=== PATIENT | female | born 1970 | race Caucasian/White ===

== ENCOUNTER 2020-11-25 15:04 | Outpatient (REF) | payer OTHER, SELFPAY | END 2020-11-25 15:05 | disposition home or self-care (01) | LOC: HO.LAB 15:04 | PROVIDERS: Visit Provider Internal Medicine | DX: Z20.822 Contact with and (suspected) exposure to COVID-19 (principal) | CPT/HCPCS: 36415; C9803; U0003; U0005 ==

== ENCOUNTER 2021-01-13 17:10 | Emergency (ER) | payer OTHER, SELFPAY ==
[2021-01-13 17:54] VITALS: BP 213/98; PULSE 88; RESP 14; TEMP 36.6; O2SAT 98; BMI 38.2
== END 2021-01-13 23:18 | disposition left against medical advice (07) ==
PROVIDERS: Emergency Provider Emergency Medicine
DX: M79.642 Pain in left hand (principal); I10 Essential (primary) hypertension
CPT/HCPCS: 99281; 99282

== ENCOUNTER 2021-09-30 11:39 | Outpatient (REF) | payer OTHER, SELFPAY ==
[2021-09-30 13:13] LABS: COVID-19 Test Negative (Negative)
== END 2021-09-30 11:40 | disposition home or self-care (01) ==
LOC: HO.LAB 11:39
PROVIDERS: Visit Provider Internal Medicine
DX: Z20.822 Contact with and (suspected) exposure to COVID-19 (principal)
CPT/HCPCS: 87635; C9803

== ENCOUNTER 2024-12-28 08:53 | Outpatient (REF) | payer OTHER, SELFPAY ==
[2024-12-28 14:17] LABS: MANUAL DIFF FLAG NO
[2024-12-28 14:34] LABS: Basophils Absolute Auto 0.1 X10*3/uL (0.0-0.2); Basophils Percent Auto 1.6 % (0-2); Eosinophils Absolute Auto 0.4 X10*3/uL (0.0-0.4); Eosinophils Percent Auto 5.6 % (0-4); Imm Gran Abs Auto 0.01 X10*3/uL (0.00-0.03); Imm Gran Pct Auto 0.1 % (0.0-0.4); Lymphocytes Absolute Auto 2.1 X10*3/uL (1.2-4.9); Lymphocytes Percent Auto 29.6 % (20-40); Mean Corpuscular HGB Conc 24.6 g/dl (31.0-35.0); Mean Corpuscular Hemoglobin 14.6 pg (27.0-33.0); Mean Platelet Volume 9.4 fL (9.4-12.3); Monocytes Absolute Auto 0.5 X10*3/uL (0.1-1.2); Monocytes Percent Auto 6.7 % (2-11); Neutrophils Absolute Auto 3.9 x10*3/uL (2.0-8.3); Neutrophils Percent Auto 56.4 % (45-73); Platelet Count 397 X10*3/uL (160-400); Red Blood Count 4.74 X10*6/uL (4.20-5.50); Red Cell Distribution Width 21.1 % (11.0-16.0)
[2024-12-28 14:38] LABS: Hemoglobin 6.9 g/dl (12.0-16.0); Mean Corpuscular Volume 59.1 fL (80.0-98.0)
[2024-12-28 15:05] LABS: Alanine Aminotransferase 15 U/L (0-31); Albumin Level 3.9 g/dL (3.5-5.0); Alkaline Phosphatase 95 U/L (39-117); Anion Gap 11 (12-20); Aspartate Amino Transferase 24 U/L (5-31); Bilirubin Total 0.5 mg/dL (0.0-1.0); Blood Urea Nitrogen 14 mg/dL (9-16); Calcium 9.2 mg/dL (8.4-10.2); Carbon Dioxide 27 mmol/L (22-29); Chloride 107 mmol/L (96-108); Cholesterol 160 mg/dL (<200); Estimated Glomerular Filt Rate > 60; Glucose Random 92 mg/dL (60-115); HDL Cholesterol 51 mg/dL (>40); LDL Cholesterol Calculated 91 mg/dL (<100); Potassium 3.9 mmol/L (3.3-5.1); Sodium 141 mmol/L (135-145); Total Protein 7.5 g/dL (6.5-8.0); Triglycerides 92 mg/dL (<150)
[2024-12-28 15:25] LABS: TSH reflex Free T4 1.14 uIU/mL (0.32-4.0)
[2024-12-31 08:34] LABS: ~HepC Num1 0.16 S/CO (0.00-0.79); ~Hepatitis C Antibody Nonreactive (Nonreactive)
== END 2024-12-28 08:54 | disposition home or self-care (01) ==
LOC: HO.CHCLDS 08:53
PROVIDERS: Visit Provider Internal Medicine
DX: I10 Essential (primary) hypertension (principal)
CPT/HCPCS: 36415; 80053; 80061; 84443; 85025; 86803

== ENCOUNTER 2025-01-29 12:37 | Outpatient (REF) | payer OTHER, MEDICAID, SELFPAY ==
--- OUTSIDE RECORDS SUMMARY | 2025-01-29 13:40 | XMS_ITS | Encounter Summary ---
Author Organization [employer] Address [address] [facility] [address] [place] [address] Care Team Providers Care Cooler Deliverer Name Role Phone Oren De Leon MD Primary Care Prov ider Encounter Details Date Type Department Care Team (Latest Contact Info) Description 01/29/2025 Travel Social History Tobacco Use Types Packs/Day Years Used Date Smoking Tobacco: Never Smokeless Tobacco: Never Alcohol Use Standard Drinks/Week Comments Never 0 (1 standard drink = 0.6 oz pur e alcohol) Depression Answer Date Recorded Patient Health Questionnaire-9 Score 0 12/27/2024 Patient Health Questionnaire-9 Score 0 12/27/2024 Last PHQ-9: Questionnaire Data Not on file 0 12/27/2024 Housing Stability Answer Date Recorded What is your housing situation today? Not on monica e 12/27/[address] you li ve. Do you have problems with any of the following? None of the above 12/27/2024 Food Insecurity Answer Date Recorded Within the past 12 months, y ou worried that your food would run out before you got money to buy more: Never True 12/27/2024 Within the past 12 months,th e food you bought just didn't last and you didn't have enough money to get more: Never True 06/2025 Transportation Answer Date Recorded In the past 12 months, has l ack of transportation kept you from medical appts, meetings, work or from getting things needed for daily living? No 12/27/2024 Utilities Answer Date Recorded In the past 12 months, has t he electric, gas, oil or water company threatened to shut off services in your home? No 12/27/2024 Depression Answer Date Recorded Patient Health Questionnaire-2 Score 0 12/27/2024 Internet Access Answer Date Recorded Internet Access Q1 Yes 12/27/2024 Internet Access Q2 Not on file 12/27/2024 Comments Unknown Sex and Gender Information Value Date Recorded Sex Assigned at Female 10/03/2024 9:45 AM EST Legal Sex Female 10:39 AM EST Gender Identity Female 10/03/2024 9:45 AM EST Sexual Orientation Straight 10/03/2024 9: 45 AM EST documented as of this encounter Plan of Treatment Not on file documented as of this encounter Visit Diagnoses Not on filedocumented in this encounter Additional Health Concerns Assessment Noted Time PHQ-9 Depression Total Score: 0 12/28/19 9:09 AM EDT documented as of this encounter Care Teams Cooler Deliverer Relationship Specialty Start Date End Date Oren De Leon MD [address] [place] [phone] PCP - General Internal Medicine 12/13/24 documented as of this encounter
--- OUTSIDE RECORDS SUMMARY | 2025-01-29 13:40 | XMS_ITS | Encounter Summary ---
Author Organization [employer] Address [address] [facility] [address] [place] [address] Care Team Providers Care Archery Equipment Hay Sorter Name Role Phone Oren De Leon MD Primary Care Prov ider Encounter Details Date Type Department Care Team (Late st Contact Info) Description 01/29/2025 11:30 AM EDT Telemedicine [facility] [address] [place], [place] [phone] Oren De Leon MD [address] [place] [address] Primary hypertension (Primary Dx); Anemia, unspecified type Social History Tobacco Use Types Packs/Day Years [...] AM EST documented as of this encounter Last Filed Vital Signs Vital Sign Reading Time Taken Comments Blood Pressure 141/69 01/29/2025 11:52 AM EDT Pulse - - Temperature - - Respiratory Rate - - Oxygen Saturation - - Inhaled Oxygen Concentration - - Weight - - Height - - Body Mass Index - - documented in this encounter Miscellaneous Notes * Assessment & Plan Note - Oren Law MD - 01/29/2025 12:02 PM EDTAssociated Problem(s): Anemia Labs not done, will follow up results, denied rectal or vaginal bleeding, pending colonoscopy * Assessment & Plan Note - Oren Law MD - 01/29/2025 12:01 PM EDTAssociated Problem(s): Primary hypertension Not at target, will add nifedipine, keep low sodium diet and exercise as tolerated documented in this encounter Plan of Treatment Not on file documented as of this encounter Visit Diagnoses Diagnosis Primary hypertension- Primary Unspecified essential hypertension Anemia, unspecified type documented in this encounter Additional Health Concerns Assessment Noted Time PHQ-9 Depression Total Score: 0 12/28/19 25 9:09 AM EDT documented as of this encounter Care Teams Archery Equipment Hay Sorter Relationship Specialty Start Date End Date Oren De Leon MD [address] [place] [phone] PCP - General Internal Medicine 12/13/24 documented as of this encounter
--- OUTSIDE RECORDS SUMMARY | 2025-01-29 13:40 | XMS_ITS | Clinical Summary ---
Author Organization [employer] Address [address] [facility] [address] [place] [address] Care Team Providers Care Kennel Technician Name Role Phone Oren De Leon MD Primary Care Prov ider Allergies No known active allergies Medications Blood Pressure kit 1 kit Once per day. 1 kit 5 Active losartan-hydro CHLOROthiazide (Hyzaar) 100-25 MG tablet Take 1 tablet by mouth Once per day. 90 tablet 3 5 01/16/20 26 Active traZODone (Desyrel) 50 MG tablet Take 1 tablet (50 mg) by mouth at bedtime. 30 tablet 5 02/15/20 25 Active NIFEdipine XL (Procardia XL) 30 MG 24 hr tablet Take 1 tablet (30 mg) by mouth Once per day. Do not crush, chew, or split. 30 tablet 5 01/30/20 26 Active ferrous gluconate (Fergon) 324 (38 Fe) MG tablet Take 1 tablet (324 mg) by mouth with breakfast. 90 tablet 3 5 01/30/20 26 Active losartan (Cozaar) 50 MG tablet Take 1 tablet (50 mg) by mouth Once per day. 30 tablet 5 01/16/20 25 Discontinued losartan (Cozaar) 50 MG tablet Take 2 tablets (100 mg) by mouth Once per day. 180 tablet 5 01/16/20 25 Discontinued losartan (Cozaar) 100 MG tablet Take 1 tablet (100 mg) by mouth Once per day. 90 tablet 5 01/16/20 25 Discontinued Active Problems Problem Noted Date Diagnosed Date Anemia 01/15/2025 Assessment & Plan (01/29/2025 12:02 PM EDT): Labs not done, will follow up results, denied rectal or vaginal bleeding, pending colonoscopy Assessment & Plan (01/15/2025 9:55 AM EDT): Patient seen at er were 1 prbc was transfussed, mcv extremly low, will check for thalasemia and iron def, follow up in 2 weeks Primary insomnia 01/15/2025 Assessment & Plan (01/15/2025 9:56 AM EDT): Will start on trazodone risk vs benefits discussed Encounter for screening mamm ogram for malignant neoplasm of breast 12/27/2024 Assessment & Plan (12/27/2024 11:31 AM EDT): Will order breast mammogram Screening for colon cancer 12/27/2024 Assessment & Plan (12/27/2024 11:32 AM EDT): Will refer to gastroenterology for screening colon cancer Encounter for medical examination to establish c are 12/13/2024 Assessment & Plan (12/13/2024 9:58 AM EDT): Last pcp visit 5 years ago ER visit last year:- Hospitalization:- Pmhx: hypertension Pshx: tubal ligation 2000 All: - Meds: losartan 50mg prn A1 Menarche 12yrs LMP 11/08/24 Primary hypertension 12/13/2024 Assessment & Plan (01/29/2025 12:01 PM EDT): Not at target, will add nifedipine, keep low sodium diet and exercise as tolerated Assessment & Plan (01/15/2025 9:54 AM EDT): Not at target, she remains asymptomatic, will add hyzar 100/25, continue low sodium diet and exercise as tolerated, keep bp log, follow up in 2 weeks Assessment & Plan (12/27/2024 11:51 AM EDT): Uncontrolled, will start losartan 50mg, follow up in 2 weeks, keep low sodium diet and exercise as tolerated, keep bp log Assessment & Plan (12/13/2024 10:19 AM EDT): Patient refers that for the past 5 years she has been on-off taking losartan, not monitoring her blood pressure, will order a bp kit and follow up in 2 weeks to determine is she needs therapy Encounters Date Type Department Care Team Description 01/29/2025 11:30 AM EDT Telemedicine [facility] [address] [place] [address] Oren De Leon MD Primary hypertension (Primary Dx); Anemia, unspecified type 01/29/2025 Travel 01/15/2025 9:30 AM EDT Telemedicine [facility] [address] [place] [address] Oren De Leon MD Anemia, unspecified type (Primary Dx); Primary hypertension; Primary insomnia 01/15/2025 Travel 12/28/2024 Orders Only [facility] [address] [place] [address] Oren De Leon MD 12/28/2024 Telephone [facility] [address] [place] [address] Oren De Leon MD 12/28/2024 Telephone [facility] [address] [place] [address] Oren De Leon MD Results 12/27/2024 11:15 AM EDT Telemedicine [facility] [address] [place] [address] Oren De Leon MD Encounter for screening mammogram for malignant neoplasm of breast (Primary Dx); Screening for colon cancer; Screening for cervical cancer; Primary hypertension 12/27/2024 Travel 12/26/2024 Telephone [facility] [address] [place] [address] Oren De Leon MD chart prep 12/13/2024 9:45 AM EDT Telemedicine [facility] [address] [place] [address] Oren De Leon MD Encounter for medical examination to establish care (Primary Dx); Primary hypertension 12/13/2024 Travel 12/12/2024 Telephone [facility] [address] [place] [address] Oren De Leon MD chart prep 12/10/2024 Telephone [facility] [address] [place] [address] Oren De Leon MD No Show 12/10/2024 Telephone [facility] [address] [place], [place] [phone] Oren De Leon MD from Last 3 Months Family History Medical History Relation Name Comments Lung cancer Brother chronic smoker No Known Problems Father Diabetes Mother Hypertension Mother Lung cancer Mother chronic smoker Hypertension Sister Thyroid cancer Sister Relation Name Status Comments Brother Father Mother Sister Social History Tobacco Use Types Packs/Day Years Used Date Smoking Tobacco: Never Smokeless Tobacco: Never Tobacco Cessation:Counseling Given: Not Answered Alcohol Use Standard Drinks/Week Comments Never 0 [...] Orientation Straight 10/03/2024 9: 45 AM EST Last Filed Vital Signs Vital Sign Reading Time Taken Comments Blood Pressure 141/69 01/29/2025 11:52 AM EDT Pulse - - Temperature - - Respiratory Rate - - Oxygen Saturation - - Inhaled Oxygen Concentration - - Weight - - Height - - Body Mass Index - - Plan of Treatment Health Maintenance Due Date Last Done Comments CT Colonography 1971 Colonoscopy 1971 Colorectal Cancer Screening 1971 FIT DNA/Cologuard 1971 FIT 1971 FOBT 1971 HIV Screening 1971 SDOH Screening 1971 Sigmoidoscopy 1971 DTaP/Tdap/Td Vaccines (1 - Tdap) 1990 Hepatitis B Vaccines (1 of 3 - 19+ 3-dose series) 1990 Pap Smear 1992 Cervical Cancer Screening 2001 HPV/Cotest 2001 Mammogram 2011 Pneumococcal Vaccine: 50+ Years (1 of 1 - PCV) 2021 Zoster Vaccines (1 of 2) 2021 COVID-19 Vaccine ( - 2023-2 5 season) 2024 Influenza Vaccine (#1) 2024 Tobacco Screening 12/13/2025 12/13/2024 Alcohol/Substance Use Screening 12/27/2025 12/27/2024 Depression Screening 12/27/2025 12/27/2024, 12/27/2024 Lipid Panel 12/28/2029 12/28/2024 RSV Patients and Patients Aged 60 years or older (1 - 1-dose 75+ series) 2046 Hepatitis C Screening Completed 12/28/2024 HIB Vaccines Aged Out No longer eligi ble based on patient's age to complete this topic HPV Vaccines Aged Out No longer eligi ble based on patient's age to complete this topic Hepatitis A Vaccines Aged Out No long er eligible based on patient's age to complete this topic IPV Vaccines Aged Out No longer eligi ble based on patient's age to complete this topic Meningococcal Vaccine Aged Out No gordy mercedes eligible based on patient's age to complete this topic RSV under 20 months Aged Out No longe r eligible based on patient's age to complete this topic Rotavirus Vaccines Aged Out No longer eligible based on patient's age to complete this topic Procedures Procedure Name Priority Date/Time Associated Diagnosis Comments PATHOLOGIST REVIEW - CBC Routine 12/28/2024 8:55 AM EDT HEPATITIS C AB W/REFL TO HCV RNA, QN, PCR Routine 12/28/2024 8:55 AM EDT Primary hypertension TSH W/REFLEX TO FT4 Routine 12/28/2024 8 :55 AM EDT Primary hypertension LIPID PANEL, STANDARD Routine 12/28/2024 8:55 AM EDT Primary hypertension COMPREHENSIVE METABOLIC PANEL Routine 12/28/2024 8:55 AM EDT Primary hypertension CBC WITH AUTO DIFFERENTIAL Routine 12/28/2024 8:55 AM EDT Primary hypertension from Last 3 Months Results * Pathologist Review - CBC (12/28/2024 8:55 AM EDT) Pathologist Review - CBC SEE NOTE [facility] Comment:Anemia with microcyt ic RBC?s and target cells: considerthalassemia, hemoglobinopathy, liver disease. Cannot excludea superimposed iron deficiency/blood loss. Clinicalcorrelation is necessary.Anastasia Casiano MD 12/28/2024 8:55 AM EDT 12/28/2024 2:14 PM EDT us Oren Law MD LAB BLOOD ORDERABL ES Final Result [facility] [address] [place] [phone] * TSH W/Reflex to FT4 (12/28/2024 8:55 AM EDT) TSH reflex Free T4 1.14 0.32 - 4.0 uIU/mL [facility] Blood Venous blood specimen / Unknown 12/28/2024 8:55 AM EDT 12/28/2024 2:14 PM EDT us Oren Law MD LAB BLOOD ORDERABL ES Final Result [facility] [address] [place] [phone] * (ABNORMAL) CBC auto differential (12/28/2024 8:55 AM EDT) Pathologist [facility] White Blood Count 7.0 4.8 - 10.8 X10*3/uL [facility] Red Blood Count 4.74 4.20 - 5.50 X10*6/uL [facility] Hemoglobin 6.9(LL) 12.0 - 16.0 g/dl [facility] Comment:Critical HGB called to and read back by WING Lindquiston 12/28/24 at 1438 by DASHAWN. Hematocrit 28.0(L) 37.0 - 47.0 % [facility] Mean Corpuscular Volume 59.1(L) 80.0 - 98.0 fL [facility] Mean Corpuscular Hemoglobin 14.6(L) 27.0 - 33.0 pg [facility] Mean Corpuscular HGB Conc 24.6(L) 31.0 - 35.0 g/dl [facility] Red Cell Distribution Width 21.1(H) 11.0 - 16.0 % [facility] Platelet Count 397 160 - 400 X10*3/uL [facility] Mean Platelet Volume 9.4 9.4 - 12.3 fL [facility] Neutrophils Percent Auto 56.4 45 - 73 % [facility] Imm Gran Pct Auto 0.1 0.0 - 0.4 % [facility] Lymphocytes Percent Auto 29.6 20 - 40 % [facility] Monocytes Percent Auto 6.7 2 - 11 % [facility] Eosinophils Percent Auto 5.6(H) 0 - 4 % [facility] Basophils Percent Auto 1.6 0 - 2 % [facility] NRBC Pct Auto 0.0 0.0 - 0.2 /100WBC [facility] Neutrophils Absolute Auto 3.9 2.0 - 8.3 x10*3/uL [facility] Imm Gran Abs Auto 0.01 0.00 - 0.03 X10*3/uL [facility] Lymphocytes Absolute Auto 2.1 1.2 - 4.9 X10*3/uL [facility] Monocytes Absolute Auto 0.5 0.1 - 1.2 X10*3/uL [facility] Eosinophils Absolute Auto 0.4 0.0 - 0.4 X10*3/uL [facility] Basophils Absolute Auto 0.1 0.0 - 0.2 X10*3/uL [facility] NRBC Abs Auto 0.000 0.0 - 0.012 X10*3/uL [facility] Blood Venous blood specimen / Unknown 12/28/2024 8:55 AM EDT 12/28/2024 2:14 PM EDT us Oren Law MD LAB BLOOD ORDERABL ES Final Result [facility] [address] [place] [phone] * Hepatitis C Antibody with Reflex to HCV, RNA, Quantitative, Real-Time PCR (12/28/2024 8:55 AM EDT) Hepatitis C Antibody Nonreactive Nonreactive [facility] Comment:Antibodies to HCV no t detected; does not exclude early acuteHCV infection. Blood Venous blood specimen / Unknown 12/28/2024 8:55 AM EDT 12/28/2024 2:14 PM EDT us Oren Law MD LAB BLOOD ORDERABL ES Final Result Performing Organization Address [facility] Co de Phone Number [facility] [address] [place] [phone] * Lipid Panel, Standard (12/28/2024 8:55 AM EDT) Triglycerides 92 <150 mg/dL [facility] Comment:Desirable Triglyceri de: less than 150 mg/dLBorderline High Triglyceride 150-199 mg/dLHigh Triglyceride: 200-499 mg/dLVery High Triglyceride: greater than or equal to 5OO mg/dL Cholesterol 160 <200 mg/dL [facility] Comment:Desirable Cholestero l: less than 200 mg/dLBorderline High Cholesterol: 200-239 mg/dLHigh Cholesterol: greater than 239 mg/dL LDL Cholesterol Calculated 91 <100 mg/dL [facility] Comment:Desirable LDL: less than 100 mg/dLNear Optimal/Above Optimal LDL: 110- 129 mg/dLBorderline High LDL: 130-159 mg/dLHigh LDL: 160-189 mg/dLVery High LDL: greater than or equal to 190 mg/dL HDL Cholesterol 51 >40 mg/dL [facility] Comment:Desirable HDL: great er than 40 mg/dL Note: This HDL assay may give artificially low results in patients with liver disease. Blood Venous blood specimen / Unknown 12/28/2024 8:55 AM EDT 12/28/2024 2:14 PM EDT us Oren Law MD LAB BLOOD ORDERABL ES Final Result Performing Organization Address City/[facility]/ZIP Co de Phone Number [facility] [address] [place] [phone] * (ABNORMAL) Comprehensive Metabolic Panel (12/28/2024 8:55 AM EDT) Sodium 141 135 - 145 mmol/L [facility] Potassium 3.9 3.3 - 5.1 mmol/L [facility] Chloride 107 96 - 108 mmol/L [facility] Carbon Dioxide 27 22 - 29 mmol/L [facility] Anion Gap 11(L) 12 - 20 [facility] Urea Nitrogen (BUN) 14 9 - 16 mg/dL [facility] Creatinine, Serum 0.57 0.5 - 1.4 mg/dL [facility] Estimated Glomerular Filt Rate >60 [facility] Comment:Chronic Kidney Disea se: Estimated GFR < 60 mL/min/[id number] Kidney Disease: Estimated GFR < 15 mL/min/1.73m2 Glucose 92 60 - 115 mg/dL [facility] Calcium 9.2 8.4 - 10.2 mg/dL [facility] Bilirubin, Total 0.5 0.0 - 1.0 mg/dL [facility] Aspartate Amino Transferase 24 5 - 31 U/L [facility] Alanine Aminotransferase 15 0 - 31 U/L [facility] Total Protein 7.5 6.5 - 8.0 g/dL [facility] Albumin Level 3.9 3.5 - 5.0 g/dL [facility] Alkaline Phosphatase 95 39 - 117 U/L [facility] Blood Venous blood specimen / Unknown 12/28/2024 8:55 AM EDT 12/28/2024 2:14 PM EDT us Oren Law MD LAB BLOOD ORDERABL ES Final Result [facility] [address] [place] [phone] [phone] from Last 3 Months Insurance MEDICARE [facility] STANDARD Care Teams Kennel Technician Relationship Specialty Start Date End Date Oren De Leon MD [address] [place] [phone] PCP - General Internal Medicine 12/13/24
[2025-01-29 14:49] LABS: Iron 20 mcg/dL (30-160); Percent Iron Saturation 5 % (15-50); Total Iron Binding Capacity 442 mcg/dL (228-428); Unsaturated Iron Binding 422 ug/dL
[2025-01-29 15:18] LABS: Folate 13.3 ng/mL (> or = 4.0); Vitamin B12 1112 pg/mL (200-900)
[2025-01-30 13:39] LABS: Hematocrit 32.3 % (35.0-45.0); Hemoglobin 8.6 g/dL (11.7-15.5); MCH 16.7 pg (27.0-33.0); MCV 62.7 fL (80.0-100.0); RBC 5.15 Million/uL (3.80-5.10); RDW 23.8 % (11.0-15.0)
== END 2025-01-29 12:38 | disposition home or self-care (01) ==
LOC: HO.CHCLDS 12:37
PROVIDERS: Visit Provider Internal Medicine
DX: D64.9 Anemia, unspecified (principal)
CPT/HCPCS: 36415; 82607; 82746; 83020; 83540; 85014; 85018; 85041

== ENCOUNTER 2025-05-09 08:25 | Outpatient (REF) | payer MEDICARE, MEDICAID, SELFPAY ==
[2025-05-09 14:31] LABS: MANUAL DIFF FLAG NO
[2025-05-09 14:39] LABS: Hematocrit 40.0 % (37.0-47.0); Hemoglobin 12.0 g/dl (12.0-16.0); Imm Gran Abs Auto 0.02 X10*3/uL (0.00-0.03); Imm Gran Pct Auto 0.2 % (0.0-0.4); Lymphocytes Absolute Auto 2.6 X10*3/uL (1.2-4.9); Mean Corpuscular HGB Conc 30.0 g/dl (31.0-35.0); Mean Corpuscular Hemoglobin 25.4 pg (27.0-33.0); Mean Corpuscular Volume 84.6 fL (80.0-98.0); NRBC Abs Auto 0.000 X10*3/uL (0.0-0.012); NRBC Pct Auto 0.0 /100WBC (0.0-0.2); Platelet Count 306 X10*3/uL (160-400); Red Blood Count 4.73 X10*6/uL (4.20-5.50); White Blood Count 8.7 X10*3/uL (4.8-10.8)
[2025-05-09 14:45] LABS: Iron 26 mcg/dL (30-160); Percent Iron Saturation 8 % (15-50); Total Iron Binding Capacity 343 mcg/dL (228-428); Unsaturated Iron Binding 317 ug/dL
== END 2025-05-09 08:26 | disposition home or self-care (01) ==
LOC: HO.CHCLDS 08:25
PROVIDERS: Visit Provider Internal Medicine
DX: D50.8 Other iron deficiency anemias (principal)
CPT/HCPCS: 36415; 83540; 85025

== ENCOUNTER 2025-06-04 13:48 | Outpatient (AMB) | payer MEDICARE, MEDICAID, SELFPAY ==
[2025-06-04 13:52] VITALS: BP 138/78; PULSE 90; O2SAT 94; BMI 38.0
--- NOTE | 2025-06-04 13:52 | HO.NEPHOV ---
Vital Signs 06/04/25 13:52 Height 5 ft 2 in Weight 208 lb BMI 38.0 BP 138/78 Blood Pressure Location Lt brachial Position Sitting Pulse 90 Pulse Source Pulse Oximeter Pulse Oximetry (%) 94 Oxygen Delivery Method Room Air Intake Visit Reasons: ENP: Primary Htn-Conf Transportation Assistant Required: Yes Transportation Assistant Name: Zoltan Dunn Allergies No Known Allergies Allergy (Verified 06/04/25 13:54) Medication List - Last Reconciled 06/04/25 by Cosmo Gómez MD ferrous gluconate 324 mg PO QAM losartan-hydrochlorothiazide 100-25 mg 1 tab PO DAILY nifedipine ER 30 mg PO DAILY PFSH Medical History (Updated 06/04/25 @ 14:13 by Cosmo Gómez MD) HTN (hypertension) Surgical History H/O tubal ligation Family History Mother Diabetes Hypertension Lung cancer Sister Hypertension Thyroid cancer Brother Lung cancer Physical Exam Vital Signs: Last Vital Signs Pulse 90 06/04/25 13:52 BP 138/78 06/04/25 13:52 Pulse Ox 94 06/04/25 13:52 Oxygen Delivery Method Room Air 06/04/25 13:52 BMI result Body Mass Index 38.0 Results Reviewed Nephrology Results: Hgb, (12.0-16.0) 12.0 g/dl Δ 05/09/25 WBC, (4.8-10.8) 8.7 X10*3/uL 05/09/25 Plt Count, (160-400) 306 X10*3/uL 05/09/25 Sodium, (135-145) 141 mmol/L 12/28/24 Potassium, (3.3-5.1) 3.9 mmol/L 12/28/24 Chloride, (96-108) 107 mmol/L 12/28/24 Carbon Dioxide, (22-29) 27 mmol/L 12/28/24 BUN, (9-16) 14 mg/dL 12/28/24 Creatinine, (0.5-1.4) 0.57 mg/dL 12/28/24 Calcium, (8.4-10.2) 9.2 mg/dL 12/28/24 Assessment & Plan Assessment & Plan (1) HTN (hypertension): Code(s): I10 - Essential (primary) hypertension Category: Medical Plan 06/04/25 History of Present Illness The patient is a 54-year-old female presenting with hypertension management Hypertension has been long-standing, managed with losartan 100 mg /HCTZ and nifedipine, with no medication issues reported. Anemia was significant in December, improved with iron supplementation from hemoglobin 6.9 g/dL to 12.0 g/dL. No bleeding issues reported except during menstruation. Stress from family responsibilities affects blood pressure; recent weight loss noted, denies high salt intake. Medical History: - Hypertension - Anemia Social History: - Lives with a sick daughter and five grandchildren, contributing to stress and occasional blood pressure fluctuations. - Reports recent weight loss and denies high salt intake. Diagnostic Results: - Labs: Hemoglobin improved from 6.9 g/dL to 12.0 g/dL with iron supplementation. Physical Exam General: Awake. Comfortable. HENT: Neck supple. Mucosa moist. Pulmonary: Lungs aeration equal. No rales. Cardiology: Heart S1-S2 heard. No gallop. Abdomen: Soft. Non tender. Bowel sounds normal. Neurologic: No involuntary movements. No myoclonus. Extremities: No edema. No rash. No swelling in the legs. 1. Essential Hypertension - Continue losartan 100 mg with HCTZ and nifedipine 30 mg. - Regular blood pressure monitoring. Low salt diet Increase Physical activity Needs weight loss May need a 24 hr ABPM if SBP stays above 140 mmHg in office - Reassess in two months. 2. Anemia - Maintain iron supplementation. - Check hemoglobin levels. 3. Renal function is normal at baseline Orders: Orders Basic Metabolic Panel Today I10 - Essential (primary) hypertension Total Protein Urine Random Today I10 - Essential (primary) hypertension Complete Blood Count no Diff Today I10 - Essential (primary) hypertension Creatinine Urine Today I10 - Essential (primary) hypertension UA and rflx microscopic Today I10 - Essential (primary) hypertension Coding Level of Care Code New Pt Level 4 (56892) Diagnoses HTN (hypertension) I10
--- OUTSIDE RECORDS SUMMARY | 2025-06-04 17:40 | XMS_ITS | Clinical Summary ---
Author Organization [employer] Address [address] [facility] 7[address] [place] [address] Care Team Providers Care Local Telephone Operator Name Role Phone Oren De Leon MD Primary Care Prov ider Allergies No known active allergies Medications Blood Pressure kit 1 kit Once per day. 1 kit 12/13/2024 Active losartan-hydroCH LOROthiazide (Hyzaar) 100-25 MG tablet Take 1 tablet by mouth Once per day. 90 tablet 3 01/15/2025 Active traZODone (Desyrel) 50 MG tablet Take 1 tablet (50 mg) by mouth at bedtime. 30 tablet 01/15/2025 Active NIFEdipine XL (Procardia XL) 30 MG 24 hr tablet Take 1 tablet (30 mg) by mouth Once per day. Do not crush, chew, or split. 30 tablet 11 01/29/2025 Active ferrous gluconate (Fergon) 324 (38 Fe) MG tablet Take 1 tablet (324 mg) by mouth with breakfast. 90 tablet 3 01/29/2025 6 Active Active Problems Problem Noted Date Diagnosed Date Anemia 01/15/2025 Assessment & Plan (05/06/2025 1:45 PM EDT): On ferrous sulfate, new labs ordered will follow up results, denied rectal/vaginal bleeding Assessment & Plan (03/05/2025 9:51 AM EDT): Iron def anemia, no rectal or vaginal bleeding, scheduled for GI follow up, continue oral iron replacement, follow up in 2 months with new labs Assessment & Plan (02/01/2025 2:23 PM EDT): Labs not done, will follow up results, denied rectal or vaginal bleeding, pending colonoscopy, restart ferrous sulfate Assessment & Plan (01/15/2025 9:55 AM EDT): [...] 11/08/24 Primary hypertension 12/13/2024 Assessment & Plan (05/06/2025 1:44 PM EDT): Uncontrolled, patient refers having more anxiety lately that has been causing her blood pressure to be increased, she is asymptomatic, will refer to nephrology for evaluation Assessment & Plan (03/05/2025 9:50 AM EDT): Controlled, told to continue current therapy, encouraged low sodium diet and exercise as tolerated, keep bp log, will follow up in 2 months Assessment & Plan (01/29/2025 12:01 PM EDT): [...] Encounters Date Type Department Care Team Description 05/06/2025 1:15 PM EDT Telemedicine [facility] [address] [place] [address] Oren De Leon MD Primary hypertension (Primary Dx); Iron deficiency anemia secondary to inadequate dietary iron intake 05/03/2025 Telephone [facility] [address] [place] [address] Oren De Leon MD chart prep 04/29/2025 Travel 03/05/2025 9:00 AM EDT Telemedicine [facility] MED [facility] P[facility] [address] [place] [address] Oren De Leon MD Iron deficiency anemia secondary to inadequate dietary iron intake (Primary Dx); Primary hypertension 03/05/2025 Travel from Last 3 Months Family History Medical [...] Recorded What is your housing situation today? I have emil harper 05/06/[address] you li ve. Do you have problems with any of the following? None of the above 05/06/2025 Food Insecurity Answer Date Recorded Within the [...] Sign Reading Time Taken Comments Blood Pressure 150/70 05/06/2025 1:37 PM EDT Pulse - - Temperature - - Respiratory Rate - - Oxygen Saturation - - Inhaled Oxygen Concentration - - Weight - - Height - - Body Mass Index - - Plan of Treatment Health Maintenance Due Date Last Done Comments CT Colonography 1971 Colonoscopy 1971 Colorectal Cancer Screening 1971 Dental Oral Exam 1971 Dental Prophylaxis 1971 Dental X-Ray: Bitewings 1971 Dental X-Ray: Full Mouth 1971 FIT DNA/Cologuard 1971 FIT 1971 FOBT 1971 HIV Screening 1971 Sigmoidoscopy 1971 Disability Screening 1971 DTaP/Tdap/Td Vaccines (1 - Tdap) 1990 Hepatitis B Vaccines (1 of 3 - 19+ 3-dose series) 1990 Pap Smear 1992 Cervical Cancer Screening 2001 HPV/Cotest 2001 Mammogram 2011 Pneumococcal Vaccine: 50+ Years (1 of 1 - PCV) 2021 Zoster Vaccines (1 of 2) 2021 COVID-19 Vaccine (1 - 2023-2 5 season) 2025 Influenza Vaccine (#1) 2025 Tobacco Screening 12/13/2025 12/13/2024 Alcohol/Substance Use Screening 12/27/2025 12/27/2024 Depression Screening 12/27/2025 12/27/2024, 12/27/2024 SDOH Screening 05/06/2026 05/06/2025 Lipid Panel 12/28/2029 12/28/2024 RSV Patients and [...] patient's age to complete this topic Meningococcal B Vaccine Aged Out No l onger eligible based on patient's age to complete [...] Procedure Name Priority Date/Time Associated Diagnosis Comments IRON AND TOTAL IRON BINDING CAPACITY Routine 05/09/2025 8:27 AM EDT Iron deficiency anemia secondary to inadequate dietary iron intake CBC WITH AUTO DIFFERENTIAL Routine 05/09/2025 8:27 AM EDT Iron deficiency anemia secondary to inadequate dietary iron intake HEPATITIS C AB W/REFL TO HCV RNA, QN, PCR Routine 12/28/2024 8:55 AM EDT Primary hypertension LIPID PANEL, STANDARD Routine 12/28/2024 8:55 AM EDT Primary hypertension from Last 3 Months or Most Recently Relevant to Health Maintenance Results * (ABNORMAL) CBC auto differential (05/09/2025 8:27 AM EDT) White Blood Count 8.7 4.8 - 10.8 X10*3/uL [facility] Red Blood Count 4.73 4.20 - 5.50 X10*6/uL [facility] Hemoglobin 12.0 12.0 - 16.0 g/dl [facility] Hematocrit 40.0 37.0 - 47.0 % [facility] Mean Corpuscular Volume 84.6 80.0 - 98.0 fL [facility] Mean Corpuscular Hemoglobin 25.4(L) 27.0 - 33.0 pg [facility] Mean Corpuscular HGB Conc 30.0(L) 31.0 - 35.0 g/dl [facility] Red Cell Distribution Width 14.6 11.0 - 16.0 % [facility] Platelet Count 306 160 - 400 X10*3/uL [facility] Mean Platelet Volume 11.3 9.4 - 12.3 fL [facility] Neutrophils Percent Auto 56.8 45 - 73 % [facility] Imm Gran Pct Auto 0.2 0.0 - 0.4 % [facility] Lymphocytes Percent Auto 30.0 20 - 40 % [facility] Monocytes Percent Auto 6.6 2 - 11 % [facility] Eosinophils Percent Auto 5.1(H) 0 - 4 % [facility] Basophils Percent Auto 1.3 0 - 2 % [facility] NRBC Pct Auto 0.0 0.0 - 0.2 /100WBC [facility] Neutrophils Absolute Auto 4.9 2.0 - 8.3 x10*3/uL [facility] Imm Gran Abs Auto 0.02 0.00 - 0.03 X10*3/uL [facility] Lymphocytes Absolute Auto 2.6 1.2 - 4.9 X10*3/uL [facility] Monocytes Absolute Auto 0.6 0.1 - 1.2 X10*3/uL [facility] Eosinophils Absolute Auto 0.4 0.0 - 0.4 X10*3/uL [facility] Basophils Absolute Auto 0.1 0.0 - 0.2 X10*3/uL [facility] NRBC Abs Auto 0.000 0.0 - 0.012 X10*3/uL [facility] Blood Venous blood specimen / Unknown 05/09/2025 8:27 AM EDT 05/09/2025 2:27 PM EDT Oren Law MD LAB BLOOD ORDERABL ES Final Result Performing Organization Address [facility] de Phone Number [facility] [address] [place] [phone] * (ABNORMAL) Iron And Total Iron Binding Capacity (05/09/2025 8:27 AM EDT) Iron 26(L) 30 - 160 mcg/dL [facility] Total Iron Binding Capacity 343 228 - 428 mcg/dL [facility] Percent Iron Saturation 8(L) 15 - 50 % [facility] Unsaturated Iron Binding 317 ug/dL [facility] Blood Venous blood specimen / Unknown 05/09/2025 8:27 AM EDT 05/09/2025 2:27 PM EDT Oren Law MD LAB BLOOD ORDERABL ES Final Result Performing Organization Address [facility] de Phone Number [facility] [address] [place] [phone] * Hepatitis C Antibody with Reflex to HCV, RNA, Quantitative, Real-Time PCR (12/28/2024 8:55 AM EDT) Hepatitis C Antibody Nonreactive Nonreactive [facility] Comment:Antibodies to HCV no t detected; does not exclude early acuteHCV infection. Blood Venous blood specimen / Unknown 12/28/2024 8:55 AM EDT 12/28/2024 2:14 PM EDT Oren Law MD LAB BLOOD ORDERABL ES Final Result Performing Organization Address [facility] de Phone Number [facility] [address] [place] [phone] * Lipid Panel, Standard (12/28/2024 8:55 AM EDT) Pathologist [facility] Triglycerides 92 <150 mg/dL [facility] Comment:Desirable Triglyceri de: less than 150 mg/dLBorderline High Triglyceride 150-199 mg/dLHigh Triglyceride: 200-499 mg/dLVery High Triglyceride: greater than or equal to 5OO mg/dL Cholesterol 160 <200 mg/dL [facility] Comment:Desirable Cholestero l: less than 200 mg/dLBorderline High Cholesterol: 200-239 mg/dLHigh Cholesterol: greater than 239 mg/dL LDL Cholesterol Calculated 91 <100 mg/dL [facility] Comment:Desirable LDL: less than 100 mg/dLNear Optimal/Above Optimal LDL: 110- 129 mg/dLBorderline High LDL: 130-159 mg/dLHigh LDL: 160-189 mg/dLVery High LDL: greater than or equal to 190 mg/dL HDL Cholesterol 51 >40 mg/dL [facility] Comment:Desirable HDL: great er than 40 mg/dL Note: This HDL assay may give artificially low results in patients with liver disease. Blood Venous blood specimen / Unknown 12/28/2024 8:55 AM EDT 12/28/2024 2:14 PM EDT us Oren Law MD LAB BLOOD ORDERABL ES Final Result Performing Organization Address [facility] Co de Phone Number [facility] [address] [place] [phone] from Last 3 Months or Most Recently Relevant to Health Maintenance Insurance MEDICARE [address] [id number] [facility] STANDARD Care Teams Local Telephone Operator Relationship Specialty Start Date End Date Oren De Leon MD [address] [place] [phone] PCP - General Internal Medicine 12/13/24
== END 2025-06-04 14:15 | disposition home or self-care (01) ==
LOC: HO.HKA 13:49
PROVIDERS: PCP Internal Medicine; Visit Provider Internal Medicine Hypertension Specialist
DX: I10 Essential (primary) hypertension (principal)
CPT/HCPCS: 99204

== ENCOUNTER → 2025-06-04 13:48 | Outpatient (BNVA) | payer MEDICARE, MEDICAID, SELFPAY | PROVIDERS: PCP Internal Medicine; Visit Provider Internal Medicine Hypertension Specialist | DX: I10 Essential (primary) hypertension (principal) | CPT/HCPCS: 99202 ==

== ENCOUNTER 2025-07-15 11:49 | Outpatient (REF) | payer OTHER, MEDICARE, MEDICAID, SELFPAY ==
--- NOTE | ~2025-07-15 | XR_ITS ---
EXAMINATION: XR WRIST 3 OR MORE VIEWS LEFT HISTORY: 54 y/o F with left wrist pain s/p fall, r/o COMPARISON: There are no prior studies available for comparison. FINDINGS: Four views of the left wrist, including a scaphoid view are submitted. Osseous mineralization is normal. A density at the dorsum of the wrist may represent a triquetral fracture. There is no dislocation. The joint spaces are preserved. The soft tissues are unremarkable. XR/XR wrist LT min 3V IMPRESSION: Density at the dorsum of the wrist which may represent a triquetral fracture. Clinical correlation is recommended. Electronically signed by: Ricco Eaton MD 07/15/2025 12:40 PM EDT
--- NOTE | ~2025-07-15 | XR_ITS ---
EXAMINATION: XR KNEE, LEFT CLINICAL INFORMATION: s/p fall COMPARISON: None available. TECHNIQUE: Four views of the left knee. FINDINGS: There is minimal narrowing of the medial joint space and small marginal osteophytes involving the tibial plateau and intracondylar tubercles. There is no joint effusion. There are small enthesophytes involving tibial tuberosity and patella. XR/XR knee LT 4V IMPRESSION: Mild degenerative changes consistent with osteoarthritis Electronically signed by: Virgil Tiwari MD 07/15/2025 01:45 PM EDT
--- OUTSIDE RECORDS SUMMARY | 2025-07-15 09:15 | XMS_ITS | Encounter Summary ---
Author Organization [employer] Address [address] [facility] [address] [place] [address] Care Team Providers Care Concrete Spreader Name Role Phone Oren De Leon MD Primary Care Prov ider Encounter Details Date Type Department Care Team (Late st Contact Info) Description 07/15/2025 9:15 AM EDT Office Visit [facility] [address] [place], [place] [phone] Zeina Archuleta FNP [address] [place], [place] Other closed fracture of distal end of right fibula with routine healing, subsequent encounter (Primary Dx); Primary hypertension; Pain and swelling of right ankle; Injury of left wrist, subsequent encounter; Acute pain of left knee Social History Tobacco Use Types Packs/Day Years [...] Sign Reading Time Taken Comments Blood Pressure 158/80 07/15/2025 9:13 AM EDT Pulse 72 07/15/2025 9:13 AM EDT Temperature 36.7 C (98 F) 07/15/2025 9:13 AM EDT Respiratory Rate 18 07/15/2025 9:13 AM EDT Oxygen Saturation 98% 07/15/2025 9:13 AM EDT Inhaled Oxygen Concentration - - Weight 94.3 kg (208 lb) 07/15/2025 9:13 AM EDT Height 157.5 cm (5' 2 ) 07/15/2025 9:13 AM EDT Body Mass Index 38.04 07/15/2025 9:13 AM EDT documented in this encounter Miscellaneous Notes * Assessment & Plan Note - FARA Gutierrez - 07/15/2025 9:15 AM EDT Associated Problem(s): Primary hypertension Pt states she has not been taking her hypertension medications; she said she has been too busy mornings to take them. She has been taking home BP measurements and states that the top number has beenbetween 180 and sometimes over 200. We discussed the importance of keeping the top number in [id number] to low 140s and the negative consequences possible if her blood pressure continued to be uncont rolled. * Assessment & Plan Note - FARA Gutierrez - 07/15/2025 9:15 AM EDT Associated Problem(s): Closed fracture of distal end of right fibula with routine healing Orders: tiZANidine (Zanaflex) 4 MG tablet; Take 1 tablet (4 mg) by mouth at bedtime for 10 days. celecoxib (CeleBREX) 200 MG capsule; Take 1 capsule (200 mg) by mouth 2 times daily. documented in this encounter Plan of Treatment Upcoming Encounters Date Type Department Care Team (Late st Contact Info) Description 07/29/2025 9:30 AM EST Office Visit [facility] ADULT DENTAL [address] [place] [address] Neil Hubbard documented as of this encounter Procedures Procedure Name Priority Date/Time Associated Diagnosis Comments XR WRIST 3+ VIEWS LEFT Routine 07/15/2025 12:19 PM EDT Injury of left wrist, subsequent encounter documented in this encounter Results * XR Wrist 3+ Views Left (07/15/2025 12:19 PM EDT) Anatomical Region Laterality Modality Upper Extremities, Wrist Left Radiogr aphic Imaging 07/15/2025 12:1 9 PM EDT Narrative 07/15/2025 12:43 PM EDT [address] [address] XRay Report Signed Patient: Madie Fitzpatrick MR#: [id number] 3 : 1970 Acct:[id number] Age/Sex: 54 / F ADM Date: 07/15/25 Loc: HO.XRAY Attending Dr: Zeina CHAUDHARI Ordering Physician: Zeina Archuleta Date of Service: 07/15/25 Procedure(s): XR wrist LT min 3V Accession Number(s): [id number] cc: Zeina Archuleta Reason for Exam: 54 y/o F with left wrist pain s/p fall, r/o EXAMINATION: XR WRIST 3 OR MORE VIEWS LEFT HISTORY: 54 y/o F with left wrist pain s/p fall, r/o COMPARISON: There are no prior studies available for comparison. FINDINGS: Four views of the left wrist, including a scaphoid view are submitted. Osseous mineralization is normal. A density at the dorsum of the wrist may represent a triquetral fracture. There is no dislocation. The joint spaces are preserved. The soft tissues are unremarkable. XR/XR wrist LT min 3V IMPRESSION: Density at the dorsum of the wrist which may represent a triquetral fracture. Clinical correlation is recommended. Electronically signed by: Ricco Eaton MD 07/15/2025 12:40 PM EDT RP Dictated By: Ricco Eaton MD Signed By: <Electronically signed by Ricco Eaton MD in OV> 07/15/25 1240 DD/ 1219 TD/TT: 07/15/25 1235 Leather Polisher: Procedure Note Donotuseinterpreter, Image - 07/15/2025 [place] [address] XRay Report Signed Patient: Madie FitzpatrickMR#: [id number] 3 : 1970Acct:[id number] Age/Sex: 54 / FADM Date: 07/15/25 Loc: OPAL Attending Dr: Zeina CHAUDHARI Ordering Physician: Zeina Archuleta Date of Service: 07/15/25 Procedure(s): XR wrist LT min 3V Accession Number(s): [id number] cc: Zeina Archuleta Reason for Exam: 54 y/o F with left wrist pain s/p fall, r/o EXAMINATION: XR WRIST 3 OR MORE VIEWS LEFT HISTORY: 54 y/o F with left wrist pain s/p fall, r/o COMPARISON: There are no prior studies available for comparison. FINDINGS: Four views of the left wrist, including a scaphoid view are submitted. Osseous mineralization is normal. A density at the dorsum of the wrist may represent a triquetral fracture. There is no dislocation. The joint spaces are preserved. The soft tissues are unremarkable. XR/XR wrist LT min 3V IMPRESSION: Density at the dorsum of the wrist which may represent a triquetral fracture. Clinical correlation is recommended. Electronically signed by: Ricco Eaton MD 07/15/2025 12:40 PM EDT RP Dictated By: Ricco Eaton MD Signed By: <Electronically signed by Ricco Eaton MD in OV> 07/15/25 1240 DD/ 1219 TD/TT: 07/15/25 1235 Leather Polisher: Zeina Archuleta ENGRAVER PICTURE IMG XR PROCEDURES Edited Resul t - Final documented in this encounter Visit Diagnoses Diagnosis Other closed fracture of distal end of right fibula with routine healing, subsequent encounter- Primary Primary hypertension Unspecified essential hypertension Pain and swelling of right ankle Injury of left wrist, subsequent encounter Acute pain of left knee documented in this encounter Additional Health Concerns Assessment Noted Time PHQ-9 Depression Total Score: 0 12/28/19 25 9:09 AM EDT documented as of this encounter Care Teams Concrete Spreader Relationship Specialty Start Date End Date Oren De Leon MD [address] [place] [phone] PCP - General Internal Medicine 12/13/24 documented as of this encounter
--- OUTSIDE RECORDS SUMMARY | 2025-07-15 15:19 | XMS_ITS | Encounter Summary ---
Author Organization [employer] Address [address] [place] [address] Care Team Providers Care Licensed Social Worker Name Role Phone Oren De Leon MD Primary Care Prov ider Reason for Visit * Reason Onset Date Comments MRi Results 07/09/2025 Encounter Details Date Type Department Care Team (Late st Contact Info) Description 07/09/2025 Telephone [facility] MED[facility]INE [address] [place] [address] Oren De Leon MD [address] [place], [place] [phone] MRi Results Social History Tobacco Use Types Packs/Day Years [...] AM EST documented as of this encounter Miscellaneous Notes * Telephone Encounter - Val Armando - 07/09/2025 1:20 PM EDT TC from pt requesting a call back with MRI results. PCP DR. Multani documented in this encounter Plan of Treatment Upcoming Encounters Date Type Department Care Team (Late st Contact Info) Description 07/29/2025 9:30 AM EST Office Visit [facility]ULT D[facility] [address] [place] [address] Neil Hubbard documented as of this encounter Visit Diagnoses Not on filedocumented in this encounter Additional Health Concerns Assessment Noted Time PHQ-9 Depression Total Score: 0 12/28/19 9:09 AM EDT documented as of this encounter Care Teams Licensed Social Worker Relationship Specialty Start Date End Date Oren De Leon MD [address] [place] [address] PCP - General Internal Medicine 12/13/24 documented as of this encounter
--- OUTSIDE RECORDS SUMMARY | 2025-07-15 15:19 | XMS_ITS | Encounter Summary ---
Author Organization [employer] Address [address] [facility] [address] [place] [address] Care Team Providers Care Machine Shop Instructor Name Role Phone Oren De Leon MD Primary Care Prov ider Encounter Details Date Type Department Care Team (Latest Contact Info) Description 07/15/2025 Travel Social History Tobacco Use Types Packs/Day [...] your housing situation today? I have emil meredith 05/06/[address] you li [...] as of this encounter Plan of Treatment Upcoming Encounters Date Type Department Care Team (Late st Contact Info) Description 07/29/2025 9:30 AM EST Office Visit [facility] [address] [place] [address] Neil Hubbard documented as of this encounter Visit Diagnoses Not on filedocumented in this encounter Additional Health Concerns Assessment Noted Time PHQ-9 Depression Total Score: 0 12/28/19 9:09 AM EDT documented as of this encounter Care Teams Machine Shop Instructor Relationship Specialty Start Date End Date Oren De Leon MD [address] [place] [address] PCP - General Internal Medicine 12/13/24 documented as of this encounter
--- OUTSIDE RECORDS SUMMARY | 2025-07-15 15:19 | XMS_ITS | Encounter Summary ---
Author Organization [email or web address] Address [address] [facility] [address] [place] [address] Care Team Providers Care Room Service Server Name Role Phone Oren De Leon MD Primary Care Prov ider Reason for Visit * Reason Onset Date Comments Results 07/10/2025 Encounter Details Date Type Department Care Team ([facility] st Contact Info) Description 07/10/2025 Telephone [facility] MED[facility]INE [address] [place] [address] Oren De Leon MD [address] [place], [place] [phone] Results Social History Tobacco Use Types Packs/Day [...] encounter Miscellaneous Notes * Telephone Encounter - Ade Padilla RN - 07/10/2025 11:42 AM EDT No results available yet. Will postpone until Tuesday to give so time for results to be sent. * Telephone Encounter - Jill Schaefer - 07/10/2025 10:00 AM EDT TC from pt requesting call back regarding Results. Type of results: Xr & MRI Date when done: 07/09 Facility: [facility] Contact pt at [phone] Need clinical laboratory aides teacher documented in this encounter Plan of Treatment Upcoming Encounters Date Type Department Care Team (Late st Contact Info) Description 07/29/2025 9:30 AM EST Office Visit [facility] [address] [place] [address] Neil Hubbard documented as of this encounter Visit Diagnoses Not on filedocumented in this encounter Additional Health Concerns Assessment Noted Time PHQ-9 Depression Total Score: 0 12/28/19 25 9:09 AM EDT documented as of this encounter Care Teams Room Service Server Relationship Specialty Start Date End Date Oren De Leon MD [address] [place] [address] PCP - General Internal Medicine 12/13/24 documented as of this encounter
--- OUTSIDE RECORDS SUMMARY | 2025-07-15 15:19 | XMS_ITS | Clinical Summary ---
Author Organization [facility] Address [address] [place] [address] Care Team Providers Care Community Life Director Name Role Phone Oren De Leon MD Primary Care Prov ider Allergies No known active allergies Medications Blood Pressure kit 1 kit Once per day. 1 kit 12/14/19 25 Active losartan-hydro CHLOROthiazide (Hyzaar) 100-25 MG tablet Take 1 tablet by mouth Once per day. 90 tablet 3 01/16/20 25 026 Active traZODone (Desyrel) 50 MG tablet Take 1 tablet (50 mg) by mouth at bedtime. 30 tablet 01/16/20 25 Active NIFEdipine XL (Procardia XL) 30 MG 24 hr tablet Take 1 tablet (30 mg) by mouth Once per day. Do not crush, chew, or split. 30 tablet 11 01/30/20 25 026 Active ferrous gluconate (Fergon) 324 (38 Fe) MG tablet Take 1 tablet (324 mg) by mouth with breakfast. 90 tablet 3 01/30/20 25 026 Active tiZANidine (Zanaflex) 4 MG tabletIndicati ons:Other closed fracture of distal end of right fibula with routine healing, subsequent encounter,Pain and swelling of right ankle,Injury of left wrist, subsequent encounter,Acut e pain of left knee Take 1 tablet (4 mg) by mouth at bedtime for 10 days. 10 tablet 07/15/20 25 025 Active celecoxib (CeleBREX) 200 MG capsuleIndicat ions:Other closed fracture of distal end of right fibula with routine healing, subsequent encounter,Pain and swelling of right ankle,Injury of left wrist, subsequent encounter,Acut e pain of left knee Take 1 capsule (200 mg) by mouth 2 times daily. 60 capsule 07/15/20 25 025 Active celecoxib (CeleBREX) 400 MG capsuleIndicat ions:Partial tear of ligament of lateral aspect of ankle,Acute pain of left knee Take 1 capsule (400 mg) by mouth 2 times daily for 10 days. 20 capsule 07/02/20 25 Discontinued acetaminophen (Tylenol Extra Strength) 500 MG tabletIndicati ons:Partial tear of ligament of lateral aspect of ankle Take 1 tablet (500 mg) by mouth every 6 (six) hours if needed for mild pain or moderate pain for up to 10 days. 30 tablet 07/02/20 25 025 Discontinued( erapy completed) tiZANidine (Zanaflex) 4 MG tabletIndicati ons:Acute pain of left knee Take 1 tablet (4 mg) by mouth at bedtime for 10 days. 10 tablet 07/02/20 25 Discontinued(Re order (will not trigger notification to Pharmacy)) celecoxib (CeleBREX) 200 MG capsuleIndicat ions:Partial tear of ligament of lateral aspect of ankle,Acute pain of left knee Take 1 capsule (200 mg) by mouth 2 times daily for 10 days. 20 capsule 07/02/20 Discontinued( erapy completed) Active Problems Problem Noted Date Diagnosed Date Closed fracture of distal en d of right fibula with routine healing 07/15/2025 Assessment & Plan (07/15/2025 11:56 AM EDT): Orders: tiZANidine (Zanaflex) 4 MG tablet; Take 1 tablet (4 mg) by mouth at bedtime for 10 days. celecoxib (CeleBREX) 200 MG capsule; Take 1 capsule (200 mg) by mouth 2 times daily. Anemia 01/15/2025 Assessment & Plan (05/06/2025 1:45 [...] Menarche 12yrs LMP 11/08/24 Primary hypertension 12/13/2024 Overview (07/15/2025): Pt states she has not been taking her hypertension medications; she said she has been too busy mornings to take them. She has been taking home BP measurements and states that the top number has been between 180 and sometimes over 200. We discussed the importance of keeping the top number in the 130s to low 140s and the negative consequences possible if her blood pressure continued to be uncontrolled. Assessment & Plan (07/15/2025 11:56 AM EDT): Pt states she has not been taking her hypertension medications; she said she has been too busy mornings to take them. She has been taking home BP measurements and states that the top number has been between 180 and sometimes over 200. We discussed the importance of keeping the top number in the 130s to low 140s and the negative consequences possible if her blood pressure continued to be uncontrolled. Assessment & Plan (05/06/2025 1:44 PM EDT): [...] Encounters Date Type Department Care Team Description 07/15/2025 9:15 AM EDT Office Visit [facility] [address] [place] [address] Zeina Archuleta, FARA Other closed fracture of distal end of right fibula with routine healing, subsequent encounter (Primary Dx); Primary hypertension; Pain and swelling of right ankle; Injury of left wrist, subsequent encounter; Acute pain of left knee 07/15/2025 Travel 07/10/[address] [facility] [address] [place] [address] Oren De Leon MD Results 07/09/[address] [facility] [address] [place] [address] Oren De Leon MD MRi Results 07/02/2025 11:15 AM EDT Office Visit [facility] [address] [place] [address] Mikki Ontiveros CNP Partial tear of ligament of lateral aspect of ankle (Primary Dx); Acute pain of left knee; Primary hypertension 07/02/2025 Travel 07/01/2025 Telephone [facility] [address] [place] [address] Oren eD Leon MD Medication Question 06/28/2025 Telephone [facility] [address] [place] [address] Oren De Leon MD Nurse Triage 05/06/2025 1:15 PM EDT Telemedicine [facility] [address] [place] [address] Oren De Leon MD Primary hypertension (Primary Dx); Iron deficiency anemia secondary to inadequate dietary iron intake 05/03/2025 Telephone [facility] [address] [place] [address] Oren De Leon MD chart prep 04/29/2025 Travel from Last 3 Months Family History [...] Mass Index 38.04 07/15/2025 9:13 AM EDT Plan of Treatment Upcoming Encounters Date Type Department Care Team (Late st Contact Info) Description 07/29/2025 9:30 AM EST Office Visit [facility] [address] [place] [address] Neil Hubbard Health Maintenance Due Date Last Done Comments [...] COVID-19 Vaccine ( - 2023-2 5 season) 2025 Influenza Vaccine [...] Name Priority Date/Time Associated Diagnosis Comments XR KNEE 4+ VIEWS LEFT Routine 07/15/2025 12:25 PM EDT Acute pain of left knee XR WRIST 3+ VIEWS LEFT Routine 07/15/2025 12:19 PM EDT Injury of left wrist, subsequent encounter IRON AND TOTAL IRON BINDING CAPACITY Routine [...] Recently Relevant to Health Maintenance Results * XR Knee 4+ Views Left (07/15/2025 12:25 PM EDT) Anatomical Region Laterality Modality Lower Extremities, Knee Left [facility] Imaging 07/15/2025 12:2 5 PM EDT Narrative 07/15/2025 1:49 PM EDT [address] [address] XRay Report Signed Patient: Madie Fitzpatrick MR#: [id number] 3 : 1970 Acct:[id number] Age/Sex: 54 / F ADM Date: 07/15/25 Loc: OPAL Attending Dr: Zeina Archuleta 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 TECHNIQUE: Four views of the left knee. FINDINGS: There is minimal narrowing of the medial joint space and small marginal osteophytes involving the tibial plateau and intracondylar tubercles. There is no joint effusion. There are small enthesophytes involving tibial tuberosity and patella. XR/XR knee LT 4V IMPRESSION: Mild degenerative changes consistent with osteoarthritis Electronically signed by: Virgil Tiwari MD 07/15/2025 01:45 PM EDT RP Dictated By: Virgil Tiwari MD Signed By: <Electronically signed by Virgil Tiwari MD in OV> 07/15/25 1345 DD/ 1225 TD/TT: 07/15/25 1235 Machine Tool Mechanic: Procedure Note Donotuseinterpreter, Image - 07/15/2025 [place] [address] XRay Report Signed Patient: Madie FitzpatrickMR#: [id number] 3 : 1970Acct:[id number] Age/Sex: 54 / FADM Date: 07/15/25 Loc: OPAL Attending Dr: Zeina CHAUDHARI Ordering Physician: Mikki Ontiveros NP Date of Service: 07/15/25 Procedure(s): XR knee LT 4V Accession Number(s): [id number] cc: Zeina Acrhuleta; Mikki Ontiveros NP Reason for Exam: s/p fall EXAMINATION: XR KNEE, LEFT CLINICAL INFORMATION: s/p fall COMPARISON: None available. TECHNIQUE: Four views of the left knee. FINDINGS: There is minimal narrowing of the medial joint space and small marginal osteophytes involving the tibial plateau and intracondylar tubercles. There is no joint effusion. There are small enthesophytes involving tibial tuberosity and patella. XR/XR knee LT 4V IMPRESSION: Mild degenerative changes consistent with osteoarthritis Electronically signed by: Vrigil Tiwari MD 07/15/2025 01:45 PM EDT RP Dictated By: Virgil Tiwari MD Signed By: <Electronically signed by Virgil Tiwari MD in OV> 07/15/25 1345 DD/ 1225 TD/TT: 07/15/25 1235 Machine Tool Mechanic: [facility] IMG XR PROCEDURES Final R esult * XR Wrist 3+ Views Left (07/15/2025 12:19 PM EDT) Anatomical Region Laterality Modality Upper Extremities, Wrist Left Radiogr aphic Imaging 07/15/2025 12:1 9 PM EDT Narrative 07/15/2025 12:43 PM EDT [place] [address] XRay Report Signed Patient: Madie Fitzpatrick MR#: [id number] 3 : 1970 Acct:[id number] Age/Sex: 54 / F ADM Date: 07/15/25 Loc: OPAL Attending Dr: Zeina CHAUDHARI Ordering Physician: Zeina Archuleta Date of Service: 07/15/25 Procedure(s): XR wrist LT min 3V Accession Number(s): [id number] cc: Zeina Archuleta Reason for Exam: 54 [...] 07/15/25 1240 DD/ 1219 TD/TT: 07/15/25 1235 Machine Tool Mechanic: Procedure Note Donotuseinterpreter, Image - 07/15/[address] [address] XRay Report Signed Patient: Madie FitzpatrickMR#: [id number] 3 : 1970Acct:[id number] Age/Sex: 54 / FADM Date: 07/15/25 Loc: [facility] Attending Dr: Zeina CHAUDHARI Ordering Physician: Zeina Archuleta Date of Service: 07/15/25 Procedure(s): XR wrist LT min 3V Accession Number(s): [id number] cc: Zeina Archuleta Reason for Exam: 54 [...] 07/15/25 1240 DD/ 1219 TD/TT: 07/15/25 1235 Machine Tool Mechanic: Zeina Archuleta [employer] 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 IMG XR PROCEDURES Edited Resul t - Final * (ABNORMAL) CBC auto differential (05/09/2025 8:27 AM EDT) White Blood Count 8.7 4.8 - 10.8 X10*3/uL [facility] Red Blood Count 4.73 4.20 - 5.50 X10*6/uL [facility] Hemoglobin 12.0 12.0 - 16.0 g/dl [facility] Hematocrit 40.0 37.0 - 47.0 % [facility] Mean Corpuscular Volume 84.6 80.0 - 98.0 fL [facility] Mean Corpuscular Hemoglobin 25.4(L) 27.0 - 33.0 pg [facility] Mean Corpuscular HGB Conc 30.0(L) 31.0 - 35.0 g/dl [facility] Red Cell Distribution Width 14.6 11.0 - 16.0 % [facility] Platelet Count 306 160 - 400 X10*3/uL [facility] Mean Platelet Volume 11.3 9.4 - 12.3 fL [facility] Neutrophils Percent Auto 56.8 45 - 73 % [facility] Imm Gran Pct Auto 0.2 0.0 - 0.4 % [facility] Lymphocytes Percent Auto 30.0 20 - 40 % [facility] Monocytes Percent Auto 6.6 2 - 11 % [facility] Eosinophils Percent Auto 5.1(H) 0 - 4 % [facility] Basophils Percent Auto 1.3 0 - 2 % [facility] NRBC Pct Auto 0.0 0.0 - 0.2 /100WBC [facility] Neutrophils Absolute Auto 4.9 2.0 - 8.3 x10*3/uL [facility] Imm Gran Abs Auto 0.02 0.00 - 0.03 X10*3/uL [facility] Lymphocytes Absolute Auto 2.6 1.2 - 4.9 X10*3/uL [facility] Monocytes Absolute Auto 0.6 0.1 - 1.2 X10*3/uL [facility] Eosinophils Absolute Auto 0.4 0.0 - 0.4 X10*3/uL [facility] Basophils Absolute Auto 0.1 0.0 - 0.2 X10*3/uL [facility] NRBC Abs Auto 0.000 0.0 - 0.012 X10*3/uL [facility] Blood Venous blood specimen / Unknown 05/09/2025 8:27 AM EDT 05/09/2025 2:27 PM EDT Oren Law MD LAB BLOOD ORDERABL ES Final Result Performing Organization Address [facility] Co de Phone Number [facility] [address] [place] [phone] * (ABNORMAL) Iron And Total Iron Binding Capacity (05/09/2025 8:27 AM EDT) Iron 26(L) 30 - 160 mcg/dL [facility] Total Iron Binding Capacity 343 228 - 428 mcg/dL [facility] Percent Iron Saturation 8(L) 15 - 50 % [facility] Unsaturated Iron Binding 317 ug/dL [facility] Blood Venous blood specimen / Unknown 05/09/2025 8:27 AM EDT 05/09/2025 2:27 PM EDT Oren Law MD LAB BLOOD ORDERABL ES Final Result Performing Organization Address [facility] Co de Phone Number [facility] [address] [place] [phone] * Hepatitis C Antibody with Reflex to HCV, RNA, Quantitative, Real-Time PCR (12/28/2024 8:55 AM EDT) Hepatitis C Antibody Nonreactive Nonreactive [facility] Comment:Antibodies to HCV no t detected; does not exclude early acuteHCV infection. Blood Venous blood specimen / Unknown 12/28/2024 8:55 AM EDT 12/28/2024 2:14 PM EDT us Oren Law MD LAB BLOOD ORDERABL ES Final Result Performing Organization Address [facility] de Phone Number [facility] [address] [place] [phone] * Lipid Panel, Standard (12/28/2024 8:55 AM EDT) Triglycerides 92 <150 mg/dL [facility] Comment:Desirable Triglyceri de: less than 150 mg/dLBorderline High Triglyceride 150-199 mg/dLHigh Triglyceride: 200-499 mg/dLVery High Triglyceride: greater than or equal to 5OO mg/dL Cholesterol 160 <200 mg/dL [facility] Comment:Desirable Cholestero l: less than 200 mg/dLBorderline High Cholesterol: 200-239 mg/dLHigh Cholesterol: greater than 239 mg/dL LDL Cholesterol Calculated 91 <100 mg/dL [facility] Comment:Desirable LDL: less than 100 mg/dLNear Optimal/Above Optimal LDL: 110- 129 mg/dLBorderline High LDL: 130-159 mg/dLHigh LDL: 160-189 mg/dLVery High LDL: greater than or equal to 190 mg/dL HDL Cholesterol 51 >40 mg/dL [facility] Comment:Desirable HDL: great er than 40 mg/dL Note: This HDL assay may give artificially low results in patients with liver disease. Blood Venous blood specimen / Unknown 12/28/2024 8:55 AM EDT 12/28/2024 2:14 PM EDT us Oren Law MD LAB BLOOD ORDERABL ES Final Result Performing Organization Address [facility] Co de Phone Number [facility] [address] [place] [phone] from Last 3 Months or Most Recently Relevant to Health Maintenance Insurance MEDICARE [facility] Care Teams Community Life Director Relationship Specialty Start Date End Date Oren De Leon MD [address] [place] [phone] PCP - General Internal Medicine 12/13/24
--- OUTSIDE RECORDS SUMMARY | 2025-07-15 15:19 | XMS_ITS | Data Portability ---
Author Organization [facility], [facility] Ol[facility] Address [address] [place] [address] Assessment No assessment recorded. Plan of Treatment Reminders Order Date Submit Date Provider Last Modified By Organization Details Last Modified Time Details Appointments None recorded. Lab None recorded. Referral None recorded. Procedures None recorded. Surgeries None recorded. Imaging XR, ankle, 3 or more view - room 5 uc left ankle [address] Office, [address], [address], [place], [address], 5 13:12:59 XR, ankle, 3 or more view - new pt 3 views right ankle wb rm u/c [address], [address], [address], [place], [address], 5 13:12:59 CT, ankle, w/o contrast - STAT RIGHT ANKLE PAIN EVAL DISTAL FIBULA FRACTURE STAT 2024 025 [facility] [place], [address], [address], [place], [address], 5 02:27:03 Medication Orders None recorded. Patient TargetsNo targets recorded. Patient InstructionsNo instructions recorded. Reason for Referral None Reported. Results Created Date Observation Date Name Description Value Unit Range Abnormal Flag Note LastModifiedBy Organization Detail LastModifiedTime 07/03/20 25 07/03/2025 XR, ankle , 3 or more view [email or web address]:/ [email or web address] ?Encry pted=s hAaTro YD8dLq bEUv6g %2BXZw aYqtaq 0bqfl% 2Fg9IQ a4ajBk vP9nXo QUaueC m3YtLR FvZlgJ JJ8Summit HZtai3 5q1647 AC0Klb XWMVaG vKiQtr MwF INTERFACE [facility] [address], [place], [address], 07/03/2025 09:56:12 07/03/2007/03/2025 XR, ankle , 3 or more view [email or web address]:/ [email or web address] ?Encry pted=s hAaTro YD8dLq bEUv6g %2BXZw aYqtaq 0bqfl% 2Fg9IQ a4ajBk vP9nXo QUaueC m3YtLR FvZl [facility] HZtai3 0i3160 AC0Klb XWMVaG vKiQtr MwF INTERFACE [facility] [address] [address], [place], [address], 07/03/2025 09:56:15 07/03/2007/03/2025 XR, ankle , 3 or more view [email or web address]:/ [email or web address] ?Encry pted=s hAaTro YD8dLq bEUv6g %2BXZw aYqtaq 0bqfl% 2Fg9IQ a4ajBk vP9nXo QUaueC m3YtLR FvZl[address] HZtai3 3w3667 AC0Klb XWMVaG vKiQtr MwF INTERFACE [facility] [address], [place], [address], 07/03/2025 10:03:39 07/03/2007/03/2025 XR, ankle , 3 or more view http:/ [email or web address] ?Encry pted=s hAaTro YD8dLq bEUv6g %2BXZw aYqtaq 0bqfl% 2Fg9IQ a4ajBk vP9nXo QUaueC m3YtLR FvZlgJ JJ8mAn HZtai3 2v8247 AC0Klb XWMVaG vKiQtr MwF INTERFACE [facility] [address], [place], [address], 07/03/2025 10:21:42 07/03/2007/03/2025 XR, ankle , 3 or more view [email or web address]:/ [email or web address] ?Encry pted=s hAaTro YD8dLq bEUv6g %2BXZw aYqtaq 0bqfl% 2Fg9IQ a4ajBk vP9nXo QUaueC m3YtLR FvZlg JJ8mAn HZtai3 9d6848 AC0Klb XWMVaG vKiQtr MwF INTERFACE [facility] [address], [place], [address], 07/03/2025 10:22:49 07/03/20 25 07/03/2025 XR, ankle , 3 or more view [email or web address]:/ [email or web address] ?Encry pted=s hAaTro YD8dLq bEUv6g %2BXZw aYqtaq 0bqfl% 2Fg9IQ a4ajBk vP9nXo QUaueC m3YtLR FvZl JJ8[facility]mit HZtai3 0t3230 AC0Klb XWMVaG vKiQtr MwF INTERFACE [facility] [address], [place], [address], 07/03/2025 10:22:51 07/03/2007/03/2025 XR, ankle , 3 or more view http:/ [email or web address] ?Encry pted=s hAaTro YD8dLq bEUv6g %2BXZw aYqtaq 0bqfl% 2Fg9IQ a4ajBk vP9nXo QUaueC m3YtLR FvZlgJ JJ8mAn HZtai3 4r7825 AC0Klb XWMVaG vKiQtr MwF INTERFACE [facility] [address], [place], [address], 07/03/2025 14:15:07 07/08/20 25 07/08/2025 CT, ankle , w/o contr ast No observ ation record ed. [email or web address] [facility] [place] [address], [place], [address], 07/10/2025 15:30:45 Result Notes Documentation Provider Name and Address Organization Details Recorded Time Xr, Ankle, 3 Or More View : [email or web address] Encrypted=uhOvPqxHI4tJmsL Uv6g%7NWCfrRezoj1ybnj%2Fg 2CNb2idPweL5eZmBTyuxEn4Lk ZMLxCbkMSZ0dXyLDndk16p467 1OH7EvhMOPBhAxGdAgyUhV Not Available [employer] 07/03/2025 14:15: 07 Xr, Ankle, 3 Or More View : [email or web address] Encrypted=rtSsRyrPV2tNyqL Uv6g%7JAWbnVuaqu4bqly%2Fg 2CPg4knKmqV5nFfTIxkxUw6Cg BNJsCcvBGW2vPtASojw89w559 1WJ0JnrGDTYtTgYbNwzIpT Not Available [facility] 07/03/2025 09:56: 13 Xr, Ankle, 3 Or More View : [email or web address] Encrypted=ltZrVjhLG3tXbsF Uv6g%9JNVhrIwopf7ifez%2Fg 0QRl7giRqoX0kZnXWrbcGg4Oc ZIYlUdwXBY0wPwBIzul85j504 0NT8HjgQBISvYyJfOefKpX Not Available [facility] 07/03/2025 09:56: 16 Xr, Ankle, 3 Or More View : [email or web address] Encrypted=rqYlMklUH4tPpkR Uv6g%1MAWsiTwtlu1jrpk%2Fg 7CYj4laBwnM1nBqCWhohNr3Vu PQLlIhpALP8fYiLMluc44h676 1YY3OwgFRAYxZpMbFmcCjK Not Available [facility] 07/03/2025 10:03: 40 Xr, Ankle, 3 Or More View : [email or web address]? Encrypted=cbPvGgtUA5tUckP Uv6g%4HMSkzSghpx6ogpc%2Fg 3DAi9knJonQ2kLlXDduxJj9Ml KEJqHdbJMI9oVjVVqhr20n667 8EF9VboTUWFeZiNgIghDtQ Not Available [facility] 07/03/2025 10:21: 43 Xr, Ankle, 3 Or More View : [email or web address]? Encrypted=qcKfVwaHD8eDriY Uv6g%6ETPalIauwu9vzio%2Fg 8PWd1dlCmkE9uSlYUwlsZx9Sx QGAgFcdJXN5oVlJCneq76e047 9LV1QgcERCGkBxEdRucCtI Not Available [facility] 07/03/2025 10:22: 50 Xr, Ankle, 3 Or More View : [email or web address] Encrypted=weXjMgxRW6jFnaN Uv6g%0DDAfhGztsh2fjea%2Fg 4QTi5pxZunG4vGcMClwgQr3Xe YFVnKckIOR9tIsSLuzi00s291 7UE5ZycDFVJoIqVbNpoCmV Not Available [facility] 07/03/2025 10:22: 51 Medical Equipment None Reported. Allergies No known drug allergies Medications Name Sig Start Date Stop Date Status Note LastModified by Organization Details LastModified Time losartan 50 mg tablet TAKE ONE TABLET DAILY active Not Available Not Available No t Available nifedipine ER 30 mg tablet,extend ed release 24 hr TAKE ONE TABLET BY MOUTH ONCE DAILY DO NOT BREAK, CRUSH, DISSOLVE OR CHEW active Not Available Not Available No t Available celecoxib 200 mg capsule TAKE ONE CAPSULE BY MOUTH TWICE DAILY FOR 10 DAYS active Not Available Not Available No t Available trazodone 50 mg tablet TAKE ONE TABLET BY MOUTH AT BEDTIME active Not Available Not Available No t Available tizanidine 4 mg tablet TAKE ONE TABLET BY MOUTH AT BEDTIME active Not Available Not Available No t Available acetaminophen 500 mg tablet TAKE ONE TABLET BY MOUTH EVERY SIX HOURS NEEDED FOR PAIN active Not Available Not Available No t Available losartan 100 mg-hydrochlor othiazide 25 mg tablet TAKE ONE TABLET BY MOUTH ONCE DAILY active Not Available Not Available No t Available ferrous gluconate 324 mg (37.5 mg iron) tablet TAKE ONE TABLET BY MOUTH ONCE DAILY WITH BREAKFAST active Not Available Not Available No t Available [employer] Blood Pressure Monitor-3 Series kit Check blood pressure on arm as directed ONCE DAILY active Not Available Not Available N ot Available Vitals Date Recorded Body height Body mass index (BMI) Body weight Provider Name and Address Organization Details Last Updated DateTime 07/03/2025 157.48 cm 38.4 kg/m2 13215.4 g AMY moctezuma [facility] 07/03/2025 09:57:52 Social History None recorded. Functional Status None recorded. Mental Status None recorded. Family History Nothing Reported. Medical History No medical history recorded. Gynecological HistoryNo gynecological history recorded. Obstetrics History GPAL:G 0 P 0 0 0 0 Past Encounters Encounter ID Performer Location Encounter Start Date Encounter Closed Date Diagnosis/Indication Diagnosis SNOMED-CT Code Diagnosis ICD10 Code Diagnosis IMO Codes Diagnosis Note [id number] Ady Mejia PA-C [facility] [place] [address] [place] [address] 07/03/2025 09:27:09 07/10/2025 15:02:30 Sprain of left ankle 9615592793 6620149 S93.492A 132250 Closed fra cture of distal right fibula 2364274908 1737860 S82.831A [id number] Health Concerns Section Related Observation LastModified by Organization Detai ls LastModified Time None Recorded Concern Status LastModified by Organization Details LastModified Time None Recorded Advance Directives Directive None Recorded Payers Insurance Date Sequence Insurance Name Policy Number Policy Lisa Covered Member ID Lisa Member ID Guarantor Name 07/14/2025 1 [place] [employer] Madie Fitzpatrick [id number] Madie Fitzpatrick 07/14/2025 2 [place] Madie Fitzpatrick [id number] Madie Fitzpatrick 07/14/2025 2 [place] Madie Fitzpatrick [id number] Madie Fitzpatrick Notes Date Note Type Note Provider Name and Address Organization Details Recorded Time 07/03/2025 text/html I am seeing the patient today under the supervision of dr Krueger who was available but who did not see the patient. D X: 1. Right distal fibula fracture . Left ankle sprain/posterior tibial tendinitis H PI: 54-year-old female here for orthopedic consultation. She is complaining of bilateral ankle pain left greater than right. She sustained a fall at the [employer]. She slipped on a wet floor in the bathroom. She was seen in the emergency room. X-rays of the left ankle were obtained at that time which were normal. She continues to complain of pain despite ibuprofen and Relafen. On today's x-rays in the office she appears to have a right distal fibula fracture. No fracture of the left ankle. P ast family, medical, social history and review of systems has been reviewed, updated and is located in the patient s chart. E xamination: Right ankle- A+O x3 + antalgic gait+ lateral swelling+ TTP ATFL, distal fibula, retrofibula ligament, deltoid ligament+TTP over the distal fibula- TTP over the course of peroneal or posterior tibial tendonLimited ROM in all planes4/5 strengthunable to perform a single heel riseN/V intactCalf soft - TTPCompartment are soft Left ankle-+ lateral and medial swelling+ TTP ATFL, distal fibula, retrofibula ligament, deltoid ligament+TTP over the distal fibula-+TTP over the course of posterior tibial tendonLimited ROM in all planes4/5 strengthunable to perform a single heel riseN/V intactCalf soft - TTPCompartment are soft X -rays ordered, obtained and reviewed at [facility] 3 views left ankle reveals an intact mortise. Old avulsion fracture inferior to the medial malleolus noted. She does have a posterior and plantar heel bone spurs. 3 views of the right ankle reveals a distal fibula fracture Dinero B with an intact mortise. But this can only be seen on 1 view. Lateral view reveals large plantar and posterior calcaneal spur. I mpression/Plan: Findings and the situation discussed. Treatment options discussed. Patient placed in a Tall boot right lower extremity. Will obtain a CT scan of the right ankle to evaluate a distal fibula fracture that was only seen on 1 view on x-ray. Clinically she is tender diffusely. In regards to the left ankle she was placed in an ASO. She may weight-bear as tolerated.. Will elevate and ice. Meloxicam 15 mg daily prn pain. Follow up as scheduled Ady Mejia PA-C [address] [facility] [address], [place], [address], [facility] 07/03/2025 10:33:33 OBGyn Episode No OBEpisode recorded.
== END 2025-07-15 11:50 | disposition home or self-care (01) ==
LOC: HO.XRAY 11:49
PROVIDERS: PCP Registered Nurse; Visit Provider Registered Nurse
DX: S69.92XD Unspecified injury of left wrist, hand and finger(s), subsequent encounter (principal); M25.562 Pain in left knee
CPT/HCPCS: 73110; 73564

== ENCOUNTER → 2025-07-15 11:59 | Outpatient (BNV) | payer OTHER, MEDICARE, MEDICAID, SELFPAY | PROVIDERS: PCP Registered Nurse; Visit Provider Radiology Diagnostic Radiology | DX: M17.12 Unilateral primary osteoarthritis, left knee (principal); M85.842 Other specified disorders of bone density and structure, left hand | CPT/HCPCS: 73110; 73564 ==

== ENCOUNTER 2025-07-29 09:22 | Outpatient (REF) | payer OTHER, MEDICARE, MEDICAID, SELFPAY ==
--- OUTSIDE RECORDS SUMMARY | 2025-07-29 09:30 | XMS_ITS | Encounter Summary ---
Author Organization [employer] Address [address] [place] [address] Care Team Providers Care Revenue Analyst Name Role Phone Oren De Leon MD Primary Care Prov ider Reason for Visit * Reason Comments Routine Cleaning Dental Exam Encounter Details Date Type Department Care Team (Late st Contact Info) Description 07/29/2025 9:30 AM EST Office Visit [facility] [address] [place] [address] Neil Hubbard Social History Tobacco Use Types Packs/Day Years [...] Sign Reading Time Taken Comments Blood Pressure 146/78 07/29/2025 9:38 AM EST Pulse 68 07/29/2025 9:38 AM EST Temperature - - Respiratory Rate - - Oxygen Saturation - - Inhaled Oxygen Concentration - - Weight - - Height - - Body Mass Index - - documented in this encounter Plan of Treatment Upcoming Encounters Date Type Department Care Team ([facility] st Contact Info) Description 07/31/2025 9:45 AM EST Telemedicine [facility] [address] [place] [address] Oren De Leon MD [address] [place] [address] documented as of this encounter Visit Diagnoses Not on filedocumented in this encounter Additional Health Concerns Assessment Noted Time PHQ-9 Depression Total Score: 0 12/28/19 9:09 AM EDT documented as of this encounter Care Teams Revenue Analyst Relationship Specialty Start Date End Date Oren De Leon MD [address] [place] [address] PCP - General Internal Medicine 12/13/24 documented as of this encounter
--- OUTSIDE RECORDS SUMMARY | 2025-07-29 10:18 | XMS_ITS | Encounter Summary ---
Author Organization [employer] Address [address] [place] [address] Care Team Providers Care Tipple Supervisor Name Role Phone Oren De Leon MD Primary Care Prov ider Reason for Visit * Reason Onset Date Comments MRi Results 07/09/2025 Encounter Details Date Type Department Care Team (Late st Contact Info) Description 07/09/2025 Telephone [facility] [address] [place] [address] Oren De Leon MD [address] [place], [place] [phone] MRi Results Social History Tobacco Use Types [...] Care Team (Late st Contact Info) Description 07/31/2025 9:45 AM EST Telemedicine [facility] [address] [place] [address] Oren De Leon MD [address] [place] [address] documented as of this encounter Visit Diagnoses Not on filedocumented in this encounter Additional Health Concerns Assessment Noted Time PHQ-9 Depression Total Score: 0 12/28/19 9:09 AM EDT documented as of this encounter Care Teams Tipple Supervisor Relationship Specialty Start Date End Date Oren De Leon MD [address] [place] [address] PCP - General Internal Medicine 12/13/24 documented as of this encounter
--- OUTSIDE RECORDS SUMMARY | 2025-07-29 10:18 | XMS_ITS | Clinical Summary ---
Author Organization [employer] Address [address] [facility] 7[address] [place] [address] Care Team Providers Care Manager Process Improvement Name Role Phone Oren De Leon MD [...] for 10 days. 10 tablet 07/15/20 25 Active celecoxib (CeleBREX) 200 MG capsuleIndicat ions:Other closed fracture of distal end of right fibula with routine healing, subsequent encounter,Pain and swelling of right ankle,Injury of left wrist, subsequent encounter,Acut e pain of left knee Take 1 capsule (200 mg) by mouth 2 times daily. 60 capsule 07/15/20 25 11/26/2 025 Active celecoxib (CeleBREX) 400 MG capsuleIndicat [...] for 10 days. 20 capsule 07/02/20 25 Discontinued( erapy completed) Active Problems Problem Noted [...] Encounters Date Type Department Care Team Description 07/29/2025 9:30 AM EST Office Visit [facility] [address] [place] [address] Neil Hubbard Arrived 07/17/2025 Results Follow-Up [facility] [address] [place] [address] Mikki Ontiveros CNP XR Knee 4+ Views Left 07/15/2025 9:15 AM EDT Office Visit [facility] [address] [place] [address] Zeina Archuleta, SUPERVISOR SHOP Other closed fracture of distal end of right fibula with routine healing, subsequent encounter (Primary Dx); Primary hypertension; Pain and swelling of right ankle; Injury of left wrist, subsequent encounter; Acute pain of left knee 07/15/2025 Results Follow-Up [facility] [address] [place] [address] Zeina Archuleta, SUPERVISOR SHOP XR Wrist 3+ Views Left 07/15/2025 Travel 07/10/[address] [address] Oren De Leon MD Results 07/09/[address] [address] Oren De Leon MD MRi Results 07/02/2025 11:15 AM EDT Office Visit [facility] [address] [place] [address] Mikki Ontiveros CNP Partial tear of ligament of lateral aspect of ankle (Primary Dx); Acute pain of left knee; Primary hypertension 07/02/2025 Travel 07/01/2025 Telephone [facility] [address] [place] [address] Oren De Leon MD Medication Question 06/28/2025 Telephone [facility] [address] [place] [address] Oren De Leon MD Nurse Triage 05/06/2025 1:15 PM EDT Telemedicine [facility] [address] [place] [address] Oren De Leon MD Primary hypertension (Primary Dx); Iron deficiency anemia secondary to inadequate dietary iron intake 05/03/2025 Telephone [facility] [address] [place] [address] Oren De Leon MD chart prep 04/29/2025 [...] Pulse 68 07/29/2025 9:38 AM EST Temperature 36.7 C (98 F) 07/15/2025 9:13 [...] Info) Description 07/31/2025 9:45 AM EST Telemedicine [facility] [address], [place] [phone] Oren De Leon MD [address] [place], [place] [phone] Health Maintenance Due Date Last Done Comments [...] Region Laterality Modality Lower Extremities, Knee Left Radiogra phic Imaging 07/15/2025 12:2 5 PM EDT Narrative 07/15/2025 1:49 PM EDT [address] [address] XRay Report Signed Patient: Madie Fitzpatrick MR#: [id number] 3 : 1970 Acct:[id number] Age/Sex: 54 / F ADM Date: 07/15/25 Loc: HO.XRAY Attending Dr: Zeina CHAUDHARI Ordering Physician: Mikki Ontiveros NP Date of Service: 07/15/25 Procedure(s): XR knee LT 4V Accession Number(s): [id number] cc: Zeina Archuleta; Mikki Ontiveros NP Reason [...] Virgil Tiwari MD 07/15/2025 01:45 PM EDT Dictated By: Virgil Tiwari MD Signed By: <Electronically signed by Virgil Tiwari MD in OV> 07/15/25 1345 DD/ 1225 TD/TT: 07/15/25 1235 Computer Typesetter Keyliner: Procedure Note Donotuseinterpreter, Image - 07/15/[address] [address] XRay Report Signed Patient: Madie FitzpatrickMR#: [id number] 3 : 1970Acct:[id number] Age/Sex: 54 / FADM Date: 07/15/25 Loc: OPAL Attending Dr: Zeina CHAUDHARI Ordering Physician: Mikki Ontiveros NP Date of Service: 07/15/25 Procedure(s): XR knee LT 4V Accession Number(s): [id number] cc: Zeina Archuleta; Mikki Ontiveros RETAIL LINK ANALYST Reason for Exam: s/p fall EXAMINATION: XR [...] 07/15/25 1345 DD/ 1225 TD/TT: 07/15/25 1235 Computer Typesetter Keyliner: [facility] IMG XR PROCEDURES Final R esult * XR Wrist 3+ Views Left (07/15/2025 12:19 PM EDT) Anatomical Region Laterality Modality Upper Extremities, Wrist Left Radiogr aphic Imaging 07/15/2025 12:1 9 PM EDT Narrative 07/15/2025 12:43 PM EDT [address] [address] XRay Report Signed Patient: Madie Fitzpatrick MR#: [id number] 3 : 1970 Acct:[id number] Age/Sex: 54 / F ADM Date: 07/15/25 Loc: OPAL Attending Dr: Zeina CHAUDHARI Ordering Physician: Zeina Archuleta Date of Service: 07/15/25 Procedure(s): XR wrist LT min 3V Accession Number(s): [id number] cc: Zeina Archuleta Reason for Exam: 54 [...] 07/15/25 1240 DD/ 1219 TD/TT: 07/15/25 1235 Computer Typesetter Keyliner: Procedure Note Donotuseinterpreter, Image - 07/15/2025 [place] [address] XRay Report Signed Patient: Madie FitzpatrickMR#: [id number] 3 : 1970Acct:[id number] Age/Sex: 54 / FADM Date: 07/15/25 Loc: OPAL Attending Dr: Zeina Archuleta SUPERVISOR SHOP Ordering Physician: Zeina Archuleta Date of Service: 07/15/25 Procedure(s): XR wrist LT min 3V Accession Number(s): [id number] cc: Zeina Archuleta Reason for Exam: 54 [...] 07/15/25 1240 DD/ 1219 TD/TT: 07/15/25 1235 Computer Typesetter Keyliner: Zeina Mauzoë SUPERVISOR SHOP IMG XR PROCEDURES Edited Resul t - Final * (ABNORMAL) CBC auto differential (05/09/2025 8:27 AM EDT) White Blood Count 8.7 4.8 - 10.8 X10*3/uL [facility] Red Blood Count 4.73 4.20 - 5.50 X10*6/uL [facility] Hemoglobin 12.0 12.0 - 16.0 g/dl [facility] Hematocrit 40.0 37.0 - 47.0 % [facility] Mean Corpuscular Volume 84.6 80.0 - 98.0 fL [facility] Mean Corpuscular Hemoglobin 25.4(L) 27.0 - 33.0 pg [facility] Mean Corpuscular HGB Conc 30.0(L) 31.0 - 35.0 g/dl [facility] Red Cell Distribution Width 14.6 11.0 - 16.0 % [facility] Platelet Count 306 160 - 400 X10*3/uL [facility] Mean Platelet Volume 11.3 9.4 - 12.3 fL [facility] Neutrophils Percent Auto 56.8 45 - 73 % [facility] Imm Gran Pct Auto 0.2 0.0 - 0.4 % [facility] Lymphocytes Percent Auto 30.0 20 - 40 % [facility] Monocytes Percent Auto 6.6 2 - 11 % [facility] Eosinophils Percent Auto 5.1(H) 0 - 4 % [facility] Basophils Percent Auto 1.3 0 - 2 % [facility] NRBC Pct Auto 0.0 0.0 - 0.2 /100WBC [facility] Neutrophils Absolute Auto 4.9 2.0 - 8.3 x10*3/uL [facility] Imm Gran Abs Auto 0.02 0.00 - 0.03 X10*3/uL [facility] Lymphocytes Absolute Auto 2.6 1.2 - 4.9 X10*3/uL [facility] Monocytes Absolute Auto 0.6 0.1 - 1.2 X10*3/uL [facility] Eosinophils Absolute Auto 0.4 0.0 - 0.4 X10*3/uL [facility] Basophils Absolute Auto 0.1 0.0 - 0.2 X10*3/uL [facility] NRBC Abs Auto 0.000 0.0 - 0.012 X10*3/uL [facility] Blood Venous blood specimen / Unknown 05/09/2025 8:27 AM EDT 05/09/2025 2:27 PM EDT us Oren Law MD LAB BLOOD ORDERABL ES Final Result [facility] [address] [place] [phone] * (ABNORMAL) Iron And Total Iron Binding Capacity (05/09/2025 8:27 AM EDT) Iron 26(L) 30 - 160 mcg/dL [facility] Total Iron Binding Capacity 343 228 - 428 mcg/dL [facility] Percent Iron Saturation 8(L) 15 - 50 % [facility] Unsaturated Iron Binding 317 ug/dL [facility] Blood Venous blood specimen / Unknown 05/09/2025 8:27 AM EDT 05/09/2025 2:27 PM EDT Oren Law MD LAB BLOOD ORDERABL ES Final Result Performing Organization Address [facility] Co de Phone Number [facility] [address] [place] [phone] * Hepatitis C Antibody with Reflex to HCV, RNA, Quantitative, Real-Time PCR (12/28/2024 8:55 AM EDT) Hepatitis C Antibody Nonreactive Nonreactive [facility] Comment:Antibodies to HCV no t detected; does not exclude early acuteHCV infection. Blood Venous blood specimen / Unknown 12/28/2024 8:55 AM EDT 12/28/2024 2:14 PM EDT Oren Law MD LAB BLOOD ORDERABL ES Final Result Performing Organization Address [facility] Co de Phone Number [facility] [address] [place] [phone] * Lipid Panel, Standard (12/28/2024 8:55 AM EDT) Triglycerides 92 <150 mg/dL [facility] Comment:Desirable Triglyceri de: less than 150 mg/dLBorderline High Triglyceride 150-199 mg/dLHigh Triglyceride: 200-499 mg/dLVery High Triglyceride: greater than or equal to 5OO mg/dL Cholesterol 160 <200 mg/dL [facility] Comment:Desirable Cholestero l: less than 200 mg/dLBorderline High Cholesterol: 200-239 mg/dLHigh Cholesterol: greater than 239 mg/dL LDL Cholesterol Calculated 91 <100 mg/dL [facility] Comment:Desirable LDL: less than 100 mg/dLNear Optimal/Above Optimal LDL: 110- 129 mg/dLBorderline High LDL: 130-159 mg/dLHigh LDL: 160-189 mg/dLVery High LDL: greater than or equal to 190 mg/dL HDL Cholesterol 51 >40 mg/dL [facility] Comment:Desirable HDL: great er than 40 mg/dL Note: This HDL assay may give artificially low results in patients with liver disease. Blood Venous blood specimen / Unknown 12/28/2024 8:55 AM EDT 12/28/2024 2:14 PM EDT Oren Law MD LAB BLOOD ORDERABL ES Final Result [facility] [address] [place] [phone] from Last 3 Months or Most Recently Relevant to Health Maintenance Insurance [place] [address] [place] [address] [place] [phone] [facility]AND[facility] D[facility] MEDICAID STAND ADULT Care Teams Manager Process Improvement Relationship Specialty Start Date End Date Oren De Leon MD [address] [place] [phone] PCP - General Internal Medicine 12/13/24
[2025-07-29 14:27] LABS: Hematocrit 41.0 % (37.0-47.0); Hemoglobin 12.5 g/dl (12.0-16.0); Mean Corpuscular HGB Conc 30.5 g/dl (31.0-35.0); Mean Corpuscular Hemoglobin 26.5 pg (27.0-33.0); Mean Corpuscular Volume 86.9 fL (80.0-98.0); NRBC Abs Auto 0.000 X10*3/uL (0.0-0.012); NRBC Pct Auto 0.0 /100WBC (0.0-0.2); Platelet Count 212 X10*3/uL (160-400); Red Blood Count 4.72 X10*6/uL (4.20-5.50); White Blood Count 7.0 X10*3/uL (4.8-10.8)
[2025-07-29 14:41] LABS: Appearance Urine Clear; Glucose Urine UA Negative (Negative); PH 6.5 (5.0-9.0); Specific Gravity - Urine 1.025 (1.005-1.025)
[2025-07-29 14:58] LABS: Anion Gap 11 (12-20); Blood Urea Nitrogen 18 mg/dL (9-16); Calcium 9.8 mg/dL (8.4-10.2); Carbon Dioxide 30 mmol/L (22-29); Chloride 103 mmol/L (96-108); Estimated Glomerular Filt Rate > 60; Potassium 3.1 mmol/L (3.3-5.1); Sodium 141 mmol/L (135-145)
[2025-07-29 15:20] LABS: Total Protein Urine Random 8 mg/dL (<12)
== END 2025-07-29 09:23 | disposition home or self-care (01) ==
LOC: HO.CHCLDS 09:22
PROVIDERS: Visit Provider Internal Medicine Hypertension Specialist
DX: I10 Essential (primary) hypertension (principal)
CPT/HCPCS: 36415; 80048; 81003; 82570; 84156; 85027

== ENCOUNTER 2025-08-06 13:23 | Outpatient (AMB) | payer MEDICARE, MEDICAID, SELFPAY ==
[2025-08-06 13:26] VITALS: BP 132/72; PULSE 88; O2SAT 95; BMI 38.4
--- NOTE | 2025-08-06 13:26 | HO.NEPHOV ---
Vital Signs 08/06/25 13:26 Height 5 ft 2 in Weight 210 lb BMI 38.4 BP 132/72 Blood Pressure Location Rt radial Position Sitting Pulse 88 Pulse Source Pulse Oximeter Pulse Oximetry (%) 95 Oxygen Delivery Method Room Air Intake Visit Reasons: 2mon f/u Retail Store Manager Required: Yes Retail Store Manager Name: Alonzo [phone] Accompanied by: Daughter Allergies No Known Allergies Allergy (Verified 08/06/25 13:28) Medication List - Last Reconciled 08/06/25 by Cosmo Gómez MD ferrous gluconate 324 mg PO QAM losartan-hydrochlorothiazide 100-25 mg 1 tab PO DAILY nifedipine ER 30 mg PO DAILY HPI Comments Details: The patient is a 54-year-old female presenting with hypertension management Hypertension has been long-standing, managed with losartan 100 mg /HCTZ and nifedipine, with no medication issues reported. Anemia was significant in December, improved with iron supplementation from hemoglobin 6.9 g/dL to 12.0 g/dL. No bleeding issues reported except during menstruation. Stress from family responsibilities affects blood pressure; recent weight loss noted, denies high salt intake. Medical History: - Hypertension - Anemia Social History: - Lives with a sick daughter and five grandchildren, contributing to stress and occasional blood pressure fluctuations. - Reports recent weight loss and denies high salt intake. Diagnostic Results: - Labs: Hemoglobin improved from 6.9 g/dL to 12.0 g/dL with iron supplementation. 08/06/25 The patient is a 54-year-old female presenting for management of high blood pressure. She is currently taking one medication for her blood pressure. Last night, she experienced a feeling of weakness, which was associated with a fall causing significant pain. The patient has a history of consistently low potassium levels. Today's blood test also revealed low potassium. She is not currently taking any potassium supplements. Her hemoglobin level is 12.58, which is an improvement from previous levels. This improvement is attributed to her eating meat. Her past medical history is also notable for prior treatment with prednisone. [facility] Medical History (Updated 06/04/25 @ 14:13 by Cosmo Gómez MD) HTN (hypertension) Surgical History H/O tubal ligation Family History Mother Diabetes Hypertension Lung cancer Sister Hypertension Thyroid cancer Brother Lung cancer Physical Exam Vital Signs: Last Vital Signs Pulse 88 08/06/25 13:26 BP 132/72 08/06/25 13:26 Pulse Ox 95 08/06/25 13:26 Oxygen Delivery Method Room Air 08/06/25 13:26 BMI result Body Mass Index 38.4 Comfortable Neck supple no JVD. Lungs entry equal no rales. Heart S1-S2 heard no gallop or rub. Abdomen soft nontender. Neuro alert awake oriented. No asterixis. Extremities no edema. Results Reviewed Nephrology Results: Hgb, (12.0-16.0) 12.5 g/dl 07/29/25 WBC, (4.8-10.8) 7.0 X10*3/uL 07/29/25 Plt Count, (160-400) 212 X10*3/uL Δ 07/29/25 Sodium, (135-145) 141 mmol/L 07/29/25 Potassium, (3.3-5.1) 3.1 mmol/L L Δ 07/29/25 Chloride, (96-108) 103 mmol/L 07/29/25 Carbon Dioxide, (22-29) 30 mmol/L H 07/29/25 BUN, (9-16) 18 mg/dL H 07/29/25 Creatinine, (0.5-1.4) 0.56 mg/dL 07/29/25 Calcium, (8.4-10.2) 9.8 mg/dL Δ 07/29/25 Urine Protein, (Neg-Trace) Negative mg/dL 07/29/25 Urine Creatinine 145.77 mg/dL 07/29/25 Assessment & Plan Assessment & Plan (1) HTN (hypertension): Code(s): I10 - Essential (primary) hypertension Category: Medical Plan 1. Essential Hypertension - Continue losartan 100 mg with HCTZ and nifedipine 30 mg. - Regular blood pressure monitoring. Low salt diet Increase Physical activity Needs weight loss Obtain 24 hr ABPM 2. Anemia HCT improved - Maintain iron supplementation. Follow hemoglobin levels. 3. Renal function is normal at baseline 4. Hypokalemia Added KCL x 3 doses Recheck ordered Orders: Orders Basic Metabolic Panel Today I10 - Essential (primary) hypertension AMB 24 HR B/P Monitor PLACEMENT Today I10 - Essential (primary) hypertension Medications: New potassium chloride ER 10 mEq PO DAILY 3 caps 0RF Coding Level of Care Code Est Pt Level 4 (76603) Diagnoses HTN (hypertension) I10
--- OUTSIDE RECORDS SUMMARY | 2025-08-06 14:40 | XMS_ITS | Encounter Summary ---
Author Organization [employer] [facility] Address [address] [facility] 7 [place] [address] Care Team Providers Care Packaging Machine Supplies Distributor Name Role Phone Oren De Leon MD Primary Care Prov ider Reason for Referral * Consultation (Routine) - Pending Review Specialty Diagnoses / Procedures Referred By Gorge douglas Referred To Contact Orthopaedic Surgery Diagnoses Other closed fracture of distal end of right fibula with routine healing, subsequent encounter Gaye Hubbard MD [address] [place] [phone] Phone: tel: fax: Referral ID Status Reason Start Date Expiration Date Visits Requested Visits Authorized [id number] Pending Review Specialty Services Required 5 08/06/2026 1 1 Reason for Visit * Reason Comments Right ankle pain Encounter Details Date Type Department Care Team (Late st Contact Info) Description 08/06/2025 2:40 PM EST Office Visit [facility] [address] [place] [address] Gaye Hubbard MD [address] [place] [address] Other closed fracture of distal end of right fibula with routine healing, subsequent encounter (Primary Dx) Social History Tobacco Use Types Packs/Day Years [...] Sign Reading Time Taken Comments Blood Pressure 148/82 08/06/2025 2:37 PM EST Pulse 96 08/06/2025 2:37 PM EST Temperature - - Respiratory Rate 21 08/06/2025 2:37 PM EST Oxygen Saturation 98% 08/06/2025 2:37 PM EST Inhaled Oxygen Concentration - - Weight 94.8 kg (209 lb) 08/06/2025 2:37 PM EST Height 157.5 cm (5' 2 ) 08/06/2025 2:37 PM EST Body Mass Index 38.23 08/06/2025 2:37 PM EST documented in this encounter Progress Notes * aGye Hubbard MD - 08/06/2025 2:40 PM EST SUBJECTIVE Madie Fitzpatrick is a 54 y.o. female who presents for Right ankle pain. Madie Fitzpatrick, 54-year-old female - Fall at [place] on June 25, 2025, resulting in injury to both feet - Small fracture diagnosed in one foot, tendon and ligament injury in the other - Difficulty walking, significant swelling at night - Redness and pain in foot after removing boot at night, concerned about possible cellulitis or ulcer - Pain more severe at night, requires neighbor's help for pain relief - Reports high blood pressure, believes pain exacerbates hypertension - MRI performed prior to visit - Prescribed meloxicam for pain, reports inadequate relief Problem List[1] Allergies[2] Medications Ordered Prior to Encounter[3] Review of Systems OBJECTIVE Vitals: 08/06/25 1437 BP: (!) 148/82 BP Location: Left arm Patient Position: Sitting BP Cuff Size: Adult long Pulse: 96 Resp: 21 SpO2: 98% Weight: 209 lb (94.8 kg) Height: 5' 2 (1.575 m) Physical Exam Constitutional: General: She is not in acute distress. Appearance: Normal appearance. She is not ill-appearing, toxic-appearing or diaphoretic. Pulmonary: Effort: Pulmonary effort is normal. Musculoskeletal: Comments: Mild swelling and tenderness/decreased ROM of the right ankle. Neurological: Mental Status: She is alert. Assessment/Plan Assessment/Plan Diagnoses and all orders for this visit: Other closed fracture of distal end of right fibula with routine healing, subsequent encounter - oxyCODONE-acetaminophen (Percocet) 5-325 MG tablet; Take 1 tablet by mouth at bedtime for 15 days. - Referral to Orthopaedic Surgery; Future - meloxicam (Mobic) 15 MG tablet; Take 1 tablet (15 mg) by mouth Once per day. Other closed fracture of distal end of right fibula with routine healing, subsequent encounter: - Distal fibular fracture on the right side with ongoing pain and difficulty ambulating. Routine healing noted. Concerns regarding pain control and possible complications discussed. - Prescribed Percocet for nighttime pain management, with explicit instruction that refills will not be provided due to risk of addiction. Recommended continued use of immobilization boot. Referral made to license and permit specialist for further evaluation and management. Advised to contact orthopedic office if symptoms persist or worsen. - Risks and side effects: Discussed risk of addiction with Percocet; patient acknowledged understanding and denied addiction concerns. This note was drafted using Ambient (AI) technology. The patient/patient's guardian has been informed and has consented to the use of this technology: Yes [1] Patient Active Problem List Diagnosis Encounter for medical examination to establish care Primary hypertension Encounter for screening mammogram for malignant neoplasm of breast Screening for colon cancer Anemia Primary insomnia Closed fracture of distal end of right fibula with routine healing [2] No Known Allergies [3] Current Outpatient Medications on File Prior to Visit Medication Sig Dispense Refill Blood Pressure kit 1 kit Once per day. 1 kit 0 celecoxib (CeleBREX) 200 MG capsule Take 1 capsule (200 mg) by mouth 2 times daily. 60 capsule 0 ferrous gluconate (Fergon) 324 (38 Fe) MG tablet Take 1 tablet (324 mg) by mouth with breakfast. 90tablet 3 losartan-hydroCHLOROthiazide (Hyzaar) 100-25 MG tablet Take 1 tablet by mouth Once per day. 90 tablet 3 NIFEdipine XL (Procardia XL) 30 MG 24 hr tablet Take 1 tablet (30 mg) by mouth Once per day. Do notcrush, chew, or split. 30 tablet 11 tiZANidine (Zanaflex) 4 MG tablet Take 1 tablet (4 mg) by mouth at bedtime for 10 days. 10 tablet 0 traZODone (Desyrel) 50 MG tablet Take 1 tablet (50 mg) by mouth at bedtime. 30 tablet 0 No current facility-administered medications on file prior to visit. documented in this encounter Plan of Treatment Upcoming Encounters Date Type Department Care Team (Late st Contact Info) Description 08/14/2025 9:00 AM EST Office Visit [facility] [address] [place] [address] Danish Myers DMD [address] [place] [address] 08/19/2025 9:00 AM EST Office Visit [facility] [address] [place] [address] Danish Myers DMD [address] [place] [address] Scheduled Referrals Name Type Priority Associated Diagnoses Order Schedule Referral to Orthopaedic Surgery Outpatient Referral Routine Other closed fracture of distal end of right fibula with routine healing, subsequent encounter Expected: 08/06/2025 (Approximate), Expires: 08/06/2026 documented as of this encounter Visit Diagnoses Diagnosis Other closed fracture of distal end of right fibula with routine healing, subsequent encounter- Primary documented in this encounter Additional Health Concerns Assessment Noted Time PHQ-9 Depression Total Score: 0 12/28/19 9:09 AM EDT documented as of this encounter Care Teams Packaging Machine Supplies Distributor Relationship Specialty Start Date End Date Oren De Leon MD [address] [place] [phone] PCP - General Internal Medicine 12/13/24 documented as of this encounter
--- OUTSIDE RECORDS SUMMARY | 2025-08-07 06:16 | XMS_ITS | Encounter Summary ---
Author Organization [employer] Address [address] [facility] 7[address] [place] [address] Care Team Providers Care Impress Associate Name Role Phone Oren De Leon MD Primary Care Prov ider Encounter Details Date Type Department Care Team (Latest Contact Info) Description 08/06/2025 Travel Social History Tobacco Use Types Packs/Day [...] Description 08/14/2025 9:00 AM EST Office Visit [facility] [address] [place] [address] Danish Myers, DMD [address] [place] [address] 08/19/2025 9:00 AM EST Office Visit [facility] [address] [place] [address] Danish Myers, DMD [address] [place] [address] documented as of this encounter Visit Diagnoses Not on filedocumented in this encounter Additional Health Concerns Assessment Noted Time PHQ-9 Depression Total Score: 0 12/28/19 9:09 AM EDT documented as of this encounter Care Teams Impress Associate Relationship Specialty Start Date End Date Oren De Leon MD [address] [place] [address] PCP - General Internal Medicine 12/13/24 documented as of this encounter
--- OUTSIDE RECORDS SUMMARY | 2025-08-07 06:16 | XMS_ITS | Encounter Summary ---
Author Organization [employer] Address [address] [facility] [address] [place] [address] Care Team Providers Care Instructor Physical Name Role Phone Oren De Leon MD Primary Care Prov ider Encounter Details Date Type Department Care Team (Late st Contact Info) Description 08/05/2025 Telephone [facility] [address] [place], [place] [phone] Oren De Leon MD [address] [place] [address] Social History Tobacco Use Types Packs/Day Years [...] encounter Miscellaneous Notes * Telephone Encounter - Mariposa Feng RN - 08/05/2025 2:04 PM EST Pt walked in requesting an appointment at [facility] for bilateral foot pain that has been flaring up, pt reports long standing issue and is causing pain walking. [facility] [place] for 08/06/25. Pt verbalized understanding and agreement with plan. documented in this encounter Plan of Treatment Upcoming Encounters Date Type Department Care Team (Late st Contact Info) Description 08/14/2025 9:00 AM EST Office Visit [facility] [address] [place] [address] Danish Myers, DMD [address] [place] [address] 08/19/2025 9:00 AM EST Office Visit [facility] [address] [place] [address] Danish Myers, DMD [address] [place] [address] documented as of this encounter Visit Diagnoses Not on filedocumented in this encounter Additional Health Concerns Assessment Noted Time PHQ-9 Depression Total Score: 0 12/28/19 9:09 AM EDT documented as of this encounter Care Teams Instructor Physical Relationship Specialty Start Date End Date Oren De Leon MD [address] [place] [address] PCP - General Internal Medicine 12/13/24 documented as of this encounter
--- OUTSIDE RECORDS SUMMARY | 2025-08-07 06:16 | XMS_ITS | Clinical Summary ---
Author Organization [employer] Address [address] [facility] [address] [place] [address] Care Team Providers Care Food Preparer Name Role Phone Oren De Leon MD [...] daily. 60 capsule 07/15/20 25 025 Active oxyCODONE-acet aminophen (Percocet) 5-325 MG tabletIndicati ons:Other closed fracture of distal end of right fibula with routine healing, subsequent encounter Take 1 tablet by mouth at bedtime for 15 days. 10 tablet 5 3:37 PM EST 08/06/20 25 025 Active meloxicam (Mobic) 15 MG tabletIndicati ons:Other closed fracture of distal end of right fibula with routine healing, subsequent encounter Take 1 tablet (15 mg) by mouth Once per day. 30 tablet 11 5 3:37 PM EST 08/06/20 25 026 Active acetaminophen (Tylenol Extra Strength) 500 MG tabletIndicati [...] for 10 days. 10 tablet 07/02/20 25 025 Discontinued(Re order (will not trigger notification to Pharmacy)) celecoxib (CeleBREX) 200 MG capsuleIndicat ions:Partial tear of ligament of lateral aspect of ankle,Acute pain of left knee Take 1 capsule (200 mg) by mouth 2 times daily for 10 days. 20 capsule 07/02/20 25 025 Discontinued( erapy completed) Active Problems Problem Noted [...] Encounters Date Type Department Care Team Description 08/06/2025 2:40 PM EST Office Visit [facility] [address] [place] [address] Gaye Hubbard MD Other closed fracture of distal end of right fibula with routine healing, subsequent encounter (Primary Dx) 08/06/2025 Travel 08/05/2025 Telephone [facility] [address] [place] [address] Oren De Leon MD 07/31/2025 Telephone [facility] [address] [place] [address] Oren De Leon MD 07/31/2025 Travel 07/29/2025 9:30 AM EST Office Visit [facility] ADULT D[facility] [address] [place] [address] Neil Hubbard Periodontal disease (Primary Dx); Secondary dental caries associated with failed or defective dental baptist; Partial edentulism, unspecified edentulism class; Dental calculus 07/29/2025 Telephone [facility] [address] [place] [address] Oren De Leon MD chart prep 07/17/2025 Results Follow-Up [facility] [address] [place] [address] Mikki Ontiveros CNP XR Knee 4+ Views Left 07/15/2025 9:15 AM EDT Office Visit [facility] [address] [place] [address] Zeina Archuleta FNP Other closed fracture of distal end of right fibula with routine healing, subsequent encounter (Primary Dx); Primary hypertension; Pain and swelling of right ankle; Injury of left wrist, subsequent encounter; Acute pain of left knee 07/15/2025 Results Follow-Up [facility] [address] [place] [address] Zeina Archuleta INTRAMURAL DIRECTOR XR Wrist 3+ Views Left 07/15/2025 Travel 07/10/[address] [place] [address] Oren De Leon MD Results 07/09/2025 Telephone [facility] [address] [place] [address] Oren De Leon MD MRi Results 07/02/2025 11:15 AM EDT Office Visit [facility] [address] [place] [address] Mikki Ontiveros CNP Partial tear of ligament of lateral aspect of ankle (Primary Dx); Acute pain of left knee; Primary hypertension 07/02/2025 Travel 07/01/2025 Telephone [facility] [address] [place], [place] [phone] Oren De Leon MD Medication Question 06/28/2025 Telephone [facility] [address] [place], [place] [phone] Oren De Leon MD Nurse Triage from Last 3 Months Family History Medical [...] Pulse 96 08/06/2025 2:37 PM EST Temperature 36.7 C (98 F) 07/15/2025 9:13 AM EDT Respiratory Rate 21 08/06/2025 2:37 PM EST Oxygen Saturation 98% 08/06/2025 2:37 PM EST Inhaled Oxygen Concentration - - Weight 94.8 kg (209 lb) 08/06/2025 2:37 PM EST Height 157.5 cm (5' 2 ) 08/06/2025 2:37 PM EST Body Mass Index 38.23 08/06/2025 2:37 PM EST Plan of Treatment Upcoming Encounters Date Type Department Care Team (Late st Contact Info) Description 08/14/2025 9:00 AM EST Office Visit [facility] [address] [place] [address] Danish Myers DMD [address] [place] [address] 08/19/2025 9:00 AM EST Office Visit [facility] [address] [place] [address] Danish Myers DMD [address] [place] [address] Health Maintenance Due Date Last Done Comments [...] of 2) 2021 COVID-19 Vaccine ( - 2024-2 6 season) 2025 Influenza Vaccine (#1) 2025 Alcohol/Substance Use Screening 12/27/2025 12/27/2024 Depression Screening 12/27/2025 12/27/2024, 12/27/2024 Dental Oral Exam 01/27/2026 07/29/2025 Dental Prophylaxis 01/27/2026 07/29/2025 SDOH Screening 05/06/2026 05/06/2025 Dental X-Ray: Bitewings 07/30/2026 07/29/2025 Tobacco Screening 08/06/2026 08/06/2025 Dental X-Ray: Full Mouth 07/30/2028 07/29/2025 Lipid Panel 12/28/2029 12/28/2024 RSV Patients and [...] Procedure Name Priority Date/Time Associated Diagnosis Comments INTRAORAL - COMPLETE SERIES OF RADIOGRAPHIC IMAGES Routine 07/29/2025 9:30 AM EST Periodontal disease Secondary dental caries associated with failed or defective dental baptist Partial edentulism, unspecified edentulism class CASE PRESENTATION, DETAILED AND EXTENSIVE TREATMENT PLANNING Routine 07/29/2025 9:30 AM EST Periodontal disease Secondary dental caries associated with failed or defective dental baptist Partial edentulism, unspecified edentulism class ORAL HYGIENE INSTRUCTIONS Routine 07/29/2025 9:30 AM EST Periodontal disease Secondary dental caries associated with failed or defective dental baptist Partial edentulism, unspecified edentulism class PROPHYLAXIS - ADULT Routine 07/29/2025 9 :30 AM EST Periodontal disease Secondary dental caries associated with failed or defective dental baptist Partial edentulism, unspecified edentulism class COMPREHENSIVE ORAL EVALUATION - NEW OR ESTABLISHED PATIENT Routine 07/29/2025 9:30 AM EST Periodontal disease Secondary dental caries associated with failed or defective dental baptist Partial edentulism, unspecified edentulism class 29 O AMALGAM FILLING Routine 07/29/2025 12:00 AM EST 20 O AMALGAM FILLING Routine 07/29/2025 12:00 AM EST 19 IDRIS AMALGAM FILLING Routine 07/29/2025 12:00 AM EST 16 O AMALGAM FILLING Routine 07/29/2025 12:00 AM EST 14 LO AMALGAM FILLING Routine 07/29/2025 12:00 AM EST 3 LO AMALGAM FILLING Routine 07/29/2025 12:00 AM EST 2 O AMALGAM FILLING Routine 07/29/2025 1 2:00 AM EST 1 O AMALGAM FILLING Routine 07/29/2025 1 2:00 AM EST XR KNEE 4+ VIEWS LEFT Routine 07/15/2025 [...] PM EDT Narrative 07/15/2025 1:49 PM EDT [place] [address] XRay Report Signed Patient: Madie Fitzpatrick MR#: [id number] 3 : 1970 Acct:[id number] Age/Sex: 54 / F ADM Date: 07/15/25 Loc: OPAL Attending Dr: Zeina CHAUDHARI Ordering Physician: Mikki Ontiveros NP Date of Service: 07/15/25 Procedure(s): XR knee LT 4V Accession Number(s): [id number] cc: Zeina Archuleta; Mikki Ontiveros NP Reason [...] 07/15/25 1345 DD/ 1225 TD/TT: 07/15/25 1235 Virtual Assistant For Advertisers: Procedure Note Donotuseinterpreter, Image - 07/15/[address] [address] XRay Report Signed Patient: Madie FitzpatrickMR#: [id number] 3 : 1970Acct:[id number] Age/Sex: 54 / FADM Date: 07/15/25 Loc: OPAL Attending Dr: Zeina CHAUDHARI Ordering Physician: Mikki Ontiveros NP Date of Service: 07/15/25 Procedure(s): XR knee LT 4V Accession Number(s): [id number] cc: Zeina Archuleta; Mikki Ontiveros NP Reason [...] 07/15/25 1345 DD/ 1225 TD/TT: 07/15/25 1235 Virtual Assistant [employer]: Mikki Ontiveros NURSES ASSISTANT IMG XR PROCEDURES Final R esult * XR Wrist 3+ Views Left (07/15/2025 12:19 PM EDT) Anatomical Region Laterality Modality Upper Extremities, Wrist Left Radiogr aphic Imaging 07/15/2025 12:1 9 PM EDT Narrative 07/15/2025 12:43 PM EDT [address] [address] XRay Report Signed Patient: Madie Fitzpatrick MR#: [id number] 3 : 1970 Acct:[id number] Age/Sex: 54 / F ADM Date: 07/15/25 Loc: [facility]OD[facility] Attending Dr: Zeina Archuleta INTRAMURAL DIRECTOR Ordering Physician: Zeina Archuleta Date of Service: 07/15/25 Procedure(s): XR wrist LT min 3V Accession Number(s): [id number] cc: Zeina Archuleta Reason for Exam: 54 [...] Ricco Eaton MD 07/15/2025 12:40 PM EDT Dictated By: Ricco Eaton MD Signed By: <Electronically signed by Ricco Eaton MD in OV> 07/15/25 1240 DD/ 1219 TD/TT: 07/15/25 1235 Virtual Assistant [employer]vertisers: Procedure Note Donotuseinterpreter, Image - 07/15/[address] [address] XRay Report Signed Patient: Madie FitzpatrickMR#: [id number] 3 : 1970Acct:[id number] Age/Sex: 54 / FADM Date: 07/15/25 Loc: HO.XRAY Attending Dr: Zeina CHAUDHARI Ordering Physician: Zeina Archuleta Date of Service: 07/15/25 Procedure(s): XR wrist LT min 3V Accession Number(s): [id number] cc: Zeina Archuleta Reason for Exam: 54 [...] 07/15/25 1240 DD/ 1219 TD/TT: 07/15/25 1235 Virtual Assistant [employer]: Zeina CHAUDHARI IMG XR PROCEDURES Edited Resul t - Final * (ABNORMAL) CBC auto differential (05/09/2025 8:27 AM EDT) White Blood Count 8.7 4.8 - 10.8 X10*3/uL [facility] Red Blood Count 4.73 4.20 - 5.50 X10*6/uL [facility] Hemoglobin 12.0 12.0 - 16.0 g/dl [facility] Hematocrit 40.0 37.0 - 47.0 % [facility] Mean Corpuscular Volume 84.6 80.0 - 98.0 fL [facility] Mean Corpuscular Hemoglobin 25.4(L) 27.0 - 33.0 pg [facility] Mean Corpuscular HGB Conc 30.0(L) 31.0 - 35.0 g/dl [facility] Red Cell Distribution Width 14.6 11.0 - 16.0 % [facility] Platelet Count 306 160 - 400 X10*3/uL [facility] Mean Platelet Volume 11.3 9.4 - 12.3 fL [facility] Neutrophils Percent Auto 56.8 45 - 73 % [facility] Imm Gran Pct Auto 0.2 0.0 - 0.4 % [facility] Lymphocytes Percent Auto 30.0 20 - 40 % [facility] Monocytes Percent Auto 6.6 2 - 11 % [facility] Eosinophils Percent Auto 5.1(H) 0 - 4 % [facility] Basophils Percent Auto 1.3 0 - 2 % [facility] NRBC Pct Auto 0.0 0.0 - 0.2 /100WBC [facility] Neutrophils Absolute Auto 4.9 2.0 - 8.3 x10*3/uL [facility] Imm Gran Abs Auto 0.02 0.00 - 0.03 X10*3/uL [facility] Lymphocytes Absolute Auto 2.6 1.2 - 4.9 X10*3/uL [facility] Monocytes Absolute Auto 0.6 0.1 - 1.2 X10*3/uL [facility] Eosinophils Absolute Auto 0.4 0.0 - 0.4 X10*3/uL [facility] Basophils Absolute Auto 0.1 0.0 - 0.2 X10*3/uL [facility] NRBC Abs Auto 0.000 0.0 - 0.012 X10*3/uL [facility] Blood Venous blood specimen / Unknown 05/09/2025 8:27 AM EDT 05/09/2025 2:27 PM EDT us Oren Law MD LAB BLOOD ORDERABL ES Final Result [facility] [address] [place] [address] [phone] * (ABNORMAL) Iron And Total Iron Binding Capacity (05/09/2025 8:27 AM EDT) Iron 26(L) 30 - 160 mcg/dL [facility] Total Iron Binding Capacity 343 228 - 428 mcg/dL [facility] Percent Iron Saturation 8(L) 15 - 50 % [facility] Unsaturated Iron Binding 317 ug/dL [facility] Blood Venous blood specimen / Unknown 05/09/2025 8:27 AM EDT 05/09/2025 2:27 PM EDT Oren Law MD LAB BLOOD ORDERABL ES Final Result Performing Organization Address [facility] Co de Phone Number [facility] [address] [place] [phone] * Hepatitis C Antibody with Reflex to HCV, RNA, Quantitative, Real-Time PCR (12/28/2024 8:55 AM EDT) Pathologist [facility] Hepatitis C Antibody Nonreactive Nonreactive [facility] Comment:Antibodies to HCV no t detected; does not exclude early acuteHCV infection. Blood Venous blood specimen / Unknown 12/28/2024 8:55 AM EDT 12/28/2024 2:14 PM EDT Oren Law MD LAB BLOOD ORDERABL ES Final Result Performing Organization Address City/[facility]/ZIP Co de Phone Number [facility] [address] [place] [address] [phone] * Lipid Panel, Standard (12/28/2024 8:55 AM EDT) Triglycerides 92 <150 mg/dL [facility] Comment:Desirable Triglyceri de: less than 150 mg/dLBorderline High Triglyceride 150-199 mg/dLHigh Triglyceride: 200-499 mg/dLVery High Triglyceride: greater than or equal to 5OO mg/dL Cholesterol 160 <200 mg/dL [facility] Comment:Desirable Cholestero l: less than 200 mg/dLBorderline High Cholesterol: 200-239 mg/dLHigh Cholesterol: greater than 239 mg/dL LDL Cholesterol Calculated 91 <100 mg/dL [facility] Comment:Desirable LDL: less than 100 mg/dLNear Optimal/Above Optimal LDL: 110- 129 mg/dLBorderline High LDL: 130-159 mg/dLHigh LDL: 160-189 mg/dLVery High LDL: greater than or equal to 190 mg/dL HDL Cholesterol 51 >40 mg/dL [facility] Comment:Desirable HDL: great er than 40 mg/dL Note: This HDL assay may give artificially low results in patients with liver disease. Blood Venous blood specimen / Unknown 12/28/2024 8:55 AM EDT 12/28/2024 2:14 PM EDT Oren Law MD LAB BLOOD ORDERABL ES Final Result [facility] [address] [place] [address] [phone] from Last 3 Months or Most Recently Relevant to Health [place] [id number] [facility] Care Teams Food Preparer Relationship Specialty Start Date End Date MultaniOren Cardenas MD [address] [place] [address] [phone] PCP - General Internal Medicine 12/13/24
--- OUTSIDE RECORDS SUMMARY | 2025-08-07 06:16 | XMS_ITS | Encounter Summary ---
Author Organization [employer] Address [address] [place] [address] Care Team Providers Care Videogame Designer Name Role Phone Oren De Leon MD Primary Care Prov ider Reason for Visit * Reason Onset Date Comments MRi Results 07/09/2025 Encounter Details Date Type Department Care Team (Late st Contact Info) Description 07/09/2025 Telephone [facility] [address] [place] [address] Oren De Leon MD [address] [place], [place] [phone] MRi Results Social History Tobacco Use Types [...] Description 08/14/2025 9:00 AM EST Office Visit [facility] [address] [place] [address] Danish Myers, DMD [address] [place] [address] 08/19/2025 9:00 AM EST Office Visit [facility] [address] [place] [address] Danish Myers, DMD [address] [place] [address] documented as of this encounter Visit Diagnoses Not on filedocumented in this encounter Additional Health Concerns Assessment Noted Time PHQ-9 Depression Total Score: 0 12/28/19 9:09 AM EDT documented as of this encounter Care Teams Videogame Designer Relationship Specialty Start Date End Date Oren De Leon MD [address] [place] [address] PCP - General Internal Medicine 12/13/24 documented as of this encounter
== END 2025-08-06 14:49 | disposition home or self-care (01) ==
LOC: HO.HKA 13:23
PROVIDERS: PCP Internal Medicine; Visit Provider Internal Medicine Hypertension Specialist
DX: I10 Essential (primary) hypertension (principal)
CPT/HCPCS: 99214

== ENCOUNTER → 2025-08-06 13:23 | Outpatient (BNVA) | payer MEDICARE, MEDICAID, SELFPAY | PROVIDERS: PCP Internal Medicine; Visit Provider Internal Medicine Hypertension Specialist | DX: I10 Essential (primary) hypertension (principal); D64.9 Anemia, unspecified; E87.6 Hypokalemia | CPT/HCPCS: 99212 ==

== ENCOUNTER 2025-08-08 11:02 | Outpatient (AMB) | payer MEDICARE, MEDICAID, SELFPAY ==
--- NOTE | 2025-08-08 11:03 | HO.NEPHOV ---
Vital Signs 08/08/25 11:04 Height 5 ft 2 in Weight 210 lb BMI 38.4 BP 144/80 H Blood Pressure Location Rt brachial Position Sitting Pulse 71 Pulse Source Pulse Oximeter Pulse Oximetry (%) 95 Oxygen Delivery Method Room Air Intake Visit Reasons: BP interpretation Heating And Refrigeration Inspector Required: Yes Heating And Refrigeration Inspector Language: Supervisor Roving Services: Heating And Refrigeration Inspector Present Heating And Refrigeration Inspector Name: [id number] Information Interpreted: clinical only Accompanied by: Self / Same As Patient Allergies No Known Allergies Allergy (Verified 08/08/25 11:04) Medication List - Last Reconciled 08/08/25 by Cosmo Gómez MD ferrous gluconate 324 mg PO QAM losartan-hydrochlorothiazide 100-25 mg 1 tab PO DAILY nifedipine ER 30 mg PO DAILY potassium chloride ER 10 mEq PO DAILY HPI Comments Details: The patient is a 54-year-old female presenting with hypertension management Hypertension has been long-standing, managed with losartan 100 mg /HCTZ and nifedipine, with no medication issues reported. Anemia was significant in December, improved with iron supplementation from hemoglobin 6.9 g/dL to 12.0 g/dL. No bleeding issues reported except during menstruation. Stress from family responsibilities affects blood pressure; recent weight loss noted, denies high salt intake. Medical History: - Hypertension - Anemia Social History: - Lives with a sick daughter and five grandchildren, contributing to stress and occasional blood pressure fluctuations. - Reports recent weight loss and denies high salt intake. Diagnostic Results: - Labs: Hemoglobin improved from 6.9 g/dL to 12.0 g/dL with iron supplementation. 08/06/25 The patient is a 54-year-old female presenting for management of high blood pressure. She is currently taking one medication for her blood pressure. Last night, she experienced a feeling of weakness, which was associated with a fall causing significant pain. The patient has a history of consistently low potassium levels. Today's blood test also revealed low potassium. She is not currently taking any potassium supplements. Her hemoglobin level is 12.58, which is an improvement from previous levels. This improvement is attributed to her eating meat. Her past medical history is also notable for prior treatment with prednisone. 08/08/25 Underwent ABPM [facility] Medical History (Updated 08/08/25 @ 11:21 by Cosmo Gómez MD) HTN (hypertension) Surgical History H/O tubal ligation Family History Mother Diabetes Hypertension Lung cancer Sister Hypertension Thyroid cancer Brother Lung cancer Physical Exam Comfortable Neck supple no JVD. Lungs entry equal no rales. Heart S1-S2 heard no gallop or rub. Abdomen soft nontender. Neuro alert awake oriented. No asterixis. Extremities no edema. Office Procedures 24 B/P Monitor Interpretation Details: Daytime [address]; 133/[address] : 129/74 Well controlled HTN with dipping White coat effect present CPT: 86911 24 Hour Blood Pressure Monitor Reading Procedure code (CPT) selection complete Results Reviewed Nephrology Results: Hgb, (12.0-16.0) 12.5 g/dl 07/29/25 WBC, (4.8-10.8) 7.0 X10*3/uL 07/29/25 Plt Count, (160-400) 212 X10*3/uL Δ 07/29/25 Sodium, (135-145) 141 mmol/L 07/29/25 Potassium, (3.3-5.1) 3.1 mmol/L L Δ 07/29/25 Chloride, (96-108) 103 mmol/L 07/29/25 Carbon Dioxide, (22-29) 30 mmol/L H 07/29/25 BUN, (9-16) 18 mg/dL H 07/29/25 Creatinine, (0.5-1.4) 0.56 mg/dL 07/29/25 Calcium, (8.4-10.2) 9.8 mg/dL Δ 07/29/25 Urine Protein, (Neg-Trace) Negative mg/dL 07/29/25 Urine Creatinine 145.77 mg/dL 07/29/25 Assessment & Plan Assessment & Plan (1) HTN (hypertension): Code(s): I10 - Essential (primary) hypertension Category: Medical (2) Elevated blood pressure reading in office with diagnosis of hypertension: Code(s): I10 - Essential (primary) hypertension Category: Medical Plan 1. Essential Hypertension - Continue losartan 100 mg with HCTZ and nifedipine 30 mg. - Regular blood pressure monitoring. Low salt diet Increase Physical activity Needs weight loss 2. Anemia HCT improved - Maintain iron supplementation. Follow hemoglobin levels. 3. Renal function is normal at baseline 08/08/25 ABPM reviewed. Due to hypokalemia , will r.o Hyperaldo Stop Losartan HCT temporararily Increase Nipefipine to 60 mg QD Check PA/ PRA in 2 weeks RTC 3 weeks Orders: Orders Aldost/Renin 2 Weeks I10 - Essential (primary) hypertension Aldosterone 2 Weeks I10 - Essential (primary) hypertension AMB 24 HR B/P Monitor INTERPRETATION Today I10 - Essential (primary) hypertension Basic Metabolic Panel 2 Weeks I10 - Essential (primary) hypertension Renin 2 Weeks I10 - Essential (primary) hypertension Medications: New nifedipine ER 60 mg (2 x 30 mg) PO DAILY 30 tabs 0RF Discontinued potassium chloride ER Discontinued Reason: Doctor's Order 10 mEq PO DAILY 3 caps 0RF Coding Level of Care Code Est Pt Level 4 (39199) Diagnoses HTN (hypertension) I10 Elevated blood pressure reading in office with diagnosis of hypertension I10 CPT Codes - CPT: 65515 24 Hour Blood Pressure Monitor Reading ([id number])
[2025-08-08 11:04] VITALS: BP 144/80; PULSE 71; O2SAT 95; BMI 38.4
== END 2025-08-08 11:18 | disposition home or self-care (01) ==
LOC: HO.HKA 11:02
PROVIDERS: PCP Internal Medicine; Visit Provider Internal Medicine Hypertension Specialist
DX: I10 Essential (primary) hypertension (principal)
CPT/HCPCS: 93790; 99214

== ENCOUNTER → 2025-08-08 11:02 | Outpatient (BNVA) | payer MEDICARE, MEDICAID, SELFPAY | PROVIDERS: PCP Internal Medicine; Visit Provider Internal Medicine Hypertension Specialist | DX: I10 Essential (primary) hypertension (principal) | CPT/HCPCS: 93786; 93788; 99212 ==

== ENCOUNTER 2025-08-27 11:21 | Outpatient (REF) | payer MEDICARE, MEDICAID, SELFPAY ==
[2025-08-27 14:41] LABS: Anion Gap 12 (12-20); Blood Urea Nitrogen 13 mg/dL (9-16); Calcium 9.6 mg/dL (8.4-10.2); Carbon Dioxide 30 mmol/L (22-29); Chloride 105 mmol/L (96-108); Estimated Glomerular Filt Rate > 60; Potassium 3.6 mmol/L (3.3-5.1); Sodium 143 mmol/L (135-145)
== END 2025-08-27 11:22 | disposition home or self-care (01) ==
LOC: HO.CHCLDS 11:21
PROVIDERS: Visit Provider Internal Medicine Hypertension Specialist
DX: I10 Essential (primary) hypertension (principal)
CPT/HCPCS: 36415; 80048; 82088; 84244

== ENCOUNTER 2025-08-29 11:40 | Outpatient (AMB) | payer MEDICARE, MEDICAID, SELFPAY ==
[2025-08-29 11:45] VITALS: BP 130/70; PULSE 80; O2SAT 97; BMI 37.9
--- NOTE | 2025-08-29 11:45 | HO.NEPHOV ---
Vital Signs 08/29/25 11:45 Height 5 ft 2 in Weight 207 lb BMI 37.9 BP 130/70 Blood Pressure Location Lt brachial Position Sitting Pulse 80 Pulse Source Pulse Oximeter Pulse Oximetry (%) 97 Oxygen Delivery Method Room Air Intake Visit Reasons: 3wks f/u w/labs [employer] Required: Yes [employer] Name: Deya [id number] Accompanied by: Friend Allergies No Known Allergies Allergy (Verified 08/29/25 11:47) Medication List - Last Reconciled 08/29/25 by Cosmo Gómez MD ferrous gluconate 324 mg PO QAM nifedipine ER 60 mg (2 x 30 mg) PO DAILY HPI Comments Details: History of Present Illness The patient is a 54 year old female presenting for follow-up management of hypertension with associated hypokalemia. Her previous medication, losartan/HCTZ, was held due to the hypokalemia, and a workup including aldosterone and renin levels was initiated. Due to a pharmacy issue where a new prescription was not filled, the patient continued to take losartan 50 mg and a diuretic 50 mg. Recent blood tests for aldosterone and renin were performed while she was still on losartan, which will render the results inaccurate. She reports a history of anemia, with her hemoglobin noted to have improved to 12.5 in July from a prior level of 6. She also reports always feeling hot, which she believes may be related to her medications. Results - Lab Results: - Hemoglobin: 12.5 as of July, which is an increase from a previous value of 6. - Aldosterone and Renin Levels: Pending, however, the results are expected to be inaccurate as the patient was taking losartan at the time of the blood draw. [facility] Medical History (Updated 08/08/25 @ 11:21 by Cosmo Gómez MD) HTN (hypertension) Surgical History H/O tubal ligation Family History Mother Diabetes Hypertension Lung cancer Sister Hypertension Thyroid cancer Brother Lung cancer Physical Exam Exam Exam: Physical Exam General: Awake. Comfortable. Reports feeling hot, never cold, possibly due to medication. HENT: Neck supple. Mucosa moist. Pulmonary: Lungs aeration equal. No rales. Cardiology: Heart S1-S2 heard. No gallop. Abdomen: Soft. Non tender. Bowel sounds normal. Neurologic: No involuntary movements. No myoclonus. Extremities: No edema. No rash. Vital Signs: Last Vital Signs Pulse 80 08/29/25 11:45 BP 130/70 08/29/25 11:45 Pulse Ox 97 08/29/25 11:45 Oxygen Delivery Method Room Air 08/29/25 11:45 BMI result Body Mass Index 37.9 Results Reviewed Nephrology Results: Hgb, (12.0-16.0) 12.5 g/dl 07/29/25 WBC, (4.8-10.8) 7.0 X10*3/uL 07/29/25 Plt Count, (160-400) 212 X10*3/uL Δ 07/29/25 Sodium, (135-145) 143 mmol/L 08/27/25 Potassium, (3.3-5.1) 3.6 mmol/L 08/27/25 Chloride, (96-108) 105 mmol/L 08/27/25 Carbon Dioxide, (22-29) 30 mmol/L H 08/27/25 BUN, (9-16) 13 mg/dL 08/27/25 Creatinine, (0.5-1.4) 0.69 mg/dL 08/27/25 Calcium, (8.4-10.2) 9.6 mg/dL 08/27/25 Urine Protein, (Neg-Trace) Negative mg/dL 07/29/25 Urine Creatinine 145.77 mg/dL 07/29/25 Assessment & Plan Assessment & Plan (1) HTN (hypertension): Code(s): I10 - Essential (primary) hypertension Category: Medical Plan Plan 1. Hypertension - Losartan will be HELD - She will start nifedipine 30 mg daily. Recheck Aldosterone./ Renin - A new prescription for nifedipine has been sent to the [facility]. - The patient was advised to call if she has any issues receiving the new medication. - A follow-up visit is scheduled in 4 weeks. 2. Hypokalemia - Blood tests, including aldosterone and renin levels, will be repeated two weeks after starting stopping Losartan and starting nifedipine to ensure the results are not affected by medication. 3. Anemia - The patient's hemoglobin has shown significant improvement, increasing from 6 to 12.5 as of July. - No changes to the current management were discussed. Interpretor service was used . Orders: Orders Basic Metabolic Panel 4 Weeks I10 - Essential (primary) hypertension Aldosterone 2 Weeks I10 - Essential (primary) hypertension TSH reflex Free T4 2 Weeks I10 - Essential (primary) hypertension Basic Metabolic Panel 2 Weeks I10 - Essential (primary) hypertension Aldost/Renin 2 Weeks I10 - Essential (primary) hypertension Renin 2 Weeks I10 - Essential (primary) hypertension Medications: Changed From nifedipine ER 60 mg (2 x 30 mg) PO DAILY 30 tabs 0RF To nifedipine ER 30 mg PO DAILY 30 tabs 0RF Refilled nifedipine ER 30 mg PO DAILY 30 tabs 0RF Coding Level of Care Code Est Pt Level 4 (86441) Diagnoses HTN (hypertension) I10
== END 2025-08-29 12:02 | disposition home or self-care (01) ==
LOC: HO.HKA 11:41
PROVIDERS: PCP Internal Medicine; Visit Provider Internal Medicine Hypertension Specialist
DX: I10 Essential (primary) hypertension (principal)
CPT/HCPCS: 99214

== ENCOUNTER → 2025-08-29 11:40 | Outpatient (BNVA) | payer MEDICARE, MEDICAID, SELFPAY | PROVIDERS: PCP Internal Medicine; Visit Provider Internal Medicine Hypertension Specialist | DX: I10 Essential (primary) hypertension (principal); E87.6 Hypokalemia | CPT/HCPCS: 99212 ==